=== PATIENT | male | born 1960 | race Asian ===

== ENCOUNTER 2019-03-02 08:24 | Day surgery (SDC) | payer BC, SELFPAY ==
[2019-03-02] VITALS (9 sets, daily range): BP systolic 90–126; BP diastolic 66–81; PULSE 77–97; RESP 9–16; TEMP 36.2–36.7; O2SAT 92–100; BMI 21.7
--- NOTE | 2019-03-02 | PATH_ITS ---
[facility] Accession Number: [id number] . 01 Material submitted: . PART A: duodenum bulb - DUODENAL BULB POLYP PART B: gastrointestinal site - STOMACH POLYP PART C: gastrointestinal site - STOMACH BIOPSY . 01 Clinical history: . A-B. R/O ADENOMA C. R/O H. PYLORI . 02 Diagnosis: A. 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 . B. Biopsy, Stomach Polyp: Changes consistent with benign fundic gland polyp involving two biopsy fragments. . C. Biopsy, Stomach: Mucosal hyperemia without associated significant inflammation involving antral and fundic mucosa. Negative for Helicobacter on H/E stain. Negative for intestinal metaplasia. Negative for dysplasia and malignancy. [facility]/03/03/2019 . 02 Electronically signed: . Oscar Bennett MD, Pathologist NPI- [id number] . 01 Gross description: . Part A: DUODENAL BULB POLYP: Received in formalin is 1 fragment(s) of ortiz, soft tissue measuring 0.1 x 0.1 x 0.1 cm which is entirely submitted and submitted entirely in 1 cassette(s) Part B: STOMACH POLYP: Received in formalin are 3 fragment(s) of ortiz, soft tissue measuring 0.1 x 0.1 x 0.1 cm to 0.4 x 0.2 x 0.2 cm which is entirely submitted and submitted entirely in 1 cassette(s) Part C: STOMACH BIOPSY: Received in formalin is 1 fragment(s) of ortiz, soft tissue measuring 0.3 x 0.2 x 0.2 cm which is entirely submitted and submitted entirely in 1 cassette(s) /[facility] /[facility] . 02 Pathologist provided ICD-10: K31.89 . 02 CPT . 781246, 599456, 240457 Performed at: 01 [facility] [address] [place] [address], [place], [place] [id number] MD Jayro Velasquez MD Phone: [phone] Performed at: 02 [facility] [place] [address] [place], [place] [id number] MD Sarah Serrano MD Phone: [phone]
[2019-03-02] MEDS: SODIUM CHLORIDE 0.9% 1,000 ML 42 ML IV (09:00)
--- NOTE | 2019-03-02 10:10 | PM.HP.1 ---
History of Present Illness History of Present Illness Date Patient Seen: 03/02/19 Time Patient Seen: 10:11 Chief complaint: [id number] Narrative: GE reflux and colon cancer screening Patient History Medical History (Updated 03/02/19 @ 09:02 by Elin Kraft RN) Blurred vision (Acute) Constipation (Acute) Dry skin (Acute) GERD (gastroesophageal reflux disease) (Acute) Kidney cyst, acquired (Acute) Unintentional weight loss (Acute) Surgical History (Updated 03/02/19 @ 08:46 by Elin Kraft RN) History of colonoscopy (Acute) History of esophagogastroduodenoscopy (EGD) (Acute) Social History household members: spouse Family & Social History Social History: household members spouse Meds Home Medications and Allergies Home Medications Medication Instructions Recorded Confirmed Type ezetimibe [Zetia] 10 mg PO DAILY 03/02/19 03/02/19 History lisinopril 10 mg PO DAILY 03/02/19 03/02/19 History omega-3 acid ethyl esters [Lovaza] 1 cap PO BID 03/02/19 03/02/19 History sildenafil [Viagra] 100 mg PO DAILY PRN 03/02/19 03/02/19 History Allergies Allergy/AdvReac Type Severity Reaction Status Date / Time No Known Drug Allergies Allergy Verified 03/02/19 08:46 Exam Vital Signs (past 8 hours): - 03/02/19 08:53 Temperature 97.6 F Pulse Rate 79 Respiratory Rate 14 Blood Pressure 126/71 Pulse Oximetry 100 Oxygen Delivery Method Room Air Narrative Exam Narrative: Oropharynx free of lesions Chest clear to auscultation percussion Cardiac exam reveals no S3 or murmur Assessment & Plan Assessment & Plan narrative: GE reflux need for EGD for his assessment of possible esophagitis or Sparks's esophagus Colonoscopy for colorectal cancer screening. Risks benefits and alternatives have been explained.
--- NOTE | 2019-03-02 10:12 | PM.OP.ENDO ---
Operative Date/Time/Diagnoses Date of procedure: 03/02/19 Time of procedure: 10:12 Pre-op diagnosis: See indication and findings Procedure & Clinicians Study performed: EGD and colonoscopy Same procedure as scheduled: Yes Indications: GE reflux and need for colorectal cancer screening Surgeon: María Chan Procedure Notes Procedure in detail: After informed consent was obtained the patient was placed in the left lateral decubitus position. The video upper scope was placed into the oropharynx with the patient's health swallowed into the esophagus. The esophagus, stomach, and duodenum were carefully examined. On withdrawal, retroflexed view the GE junction was performed. The scope was removed. The patient tolerated procedure well. The patient was then turned in the colonoscope substituted placed in the rectum and slowly advanced the splenic flexure. It was very tortuous here and uncomfortable for the patient. I was not able to easily pass.. On slow withdrawal mucosa was carefully examined. Preparation was excellent. The scope was removed. The patient tolerated the procedure well. Blood loss none Complications none Sedation Total sedation time 27 minutes Versed 9 mg fentanyl 200 micro g IV titration Findings EGD 1. Completely normal esophagus 2. Streaky gastric erythema in the antrum biopsies taken to rule out Helicobacter 3. Two 4 mm polyps in the gastric body biopsy taken to rule out adenomas 4. Single 3 mm polyp in the duodenal bulb biopsies taken to rule out adenoma. Most likely John gland hyperplasia Colonoscopy 1. Normal colonoscopy to splenic flexure only. Very tortuous and unable to pass. We will be in touch regarding biopsies from his stomach. He should stay on current medications. As for colorectal cancer screening he has had a ?sigmoidoscopy? period would not suggest for other colon imaging currently but might consider a fit test in the future
[2019-03-02] MEDS: MIDAZOLAM 5 MG/5 ML VIAL IV (10:15)
[2019-03-02] MEDS: fentaNYL 250 MCG/5 ML INJ IV (10:15)
== END 2019-03-02 11:40 | disposition home or self-care (01) ==
PROVIDERS: PCP Physician Assistant; Visit Provider Internal Medicine Gastroenterology
PROC: 0DJ08ZZ Inspection of Upper Intestinal Tract, Via Natural or Artificial Opening Endoscopic (ICD-10-PCS; CPT 43235; principal; 2019-03-02 10:00)
PROC: 0DJD8ZZ Inspection of Lower Intestinal Tract, Via Natural or Artificial Opening Endoscopic (ICD-10-PCS; CPT 45378; 2019-03-02 10:00)
DX: Z12.11 Encounter for screening for malignant neoplasm of colon (principal); K31.7 Polyp of stomach and duodenum; K31.89 Other diseases of stomach and duodenum; K21.9 Gastro-esophageal reflux disease without esophagitis
CPT/HCPCS: 43239; G0104; J2250; J3010

== ENCOUNTER → 2020-04-23 09:55 | Outpatient (CLI) | payer BC, SELFPAY ==
[2020-04-23 10:39] LABS: Hemoglobin A1C% w Est Avg Glu 5.7 % (4.0-6.0)
[2020-04-23 10:42] LABS: Erythrocyte Sedimentation Rate 1 MM/HR (0-15)
[2020-04-23 10:46] LABS: Alanine Aminotransferase 39 IU/L (<50); Albumin 4.1 g/dL (3.5-5.0); Albumin Globulin Ratio 1.2 (1.0-2.8); Alkaline Phosphatase 54 U/L (38-126); Aspartate Aminotransferase 39 IU/L (17-59); BUN Creatinine Ratio 18.4 (6-22); Bilirubin Total 0.8 mg/dL (0.2-1.3); Blood Urea Nitrogen 16 mg/dL (9-20); Calcium 9.1 mg/dL (8.4-10.2); Carbon Dioxide 35 mmol/L (22-32); Chloride 103 mmol/L (98-107); Cholesterol 259 mg/dL (140-199); Creatine Kinase 580 U/L (55-170); Estimated Glomerular Filt Rate > 60.0 mL/min (>60); Globulin 3.3 g/dL (1.7-4.1); Glucose 107 mg/dL (70-100); HDL Cholesterol 53 mg/dL (40-60); HEMOLYSIS < 15 (0-50); LDL Cholesterol Calculated 177 mg/dL (<100); Potassium 4.1 mmol/L (3.4-5.1); Sodium 140 mmol/L (137-145); Total Protein 7.4 g/dL (6.3-8.2); Triglycerides 143 mg/dL (35-150)
[2020-04-23 10:47] LABS: C-Reactive Protein Quant < 0.5 mg/dL (<1.0)
[2020-04-23 11:12] LABS: Prostate Specific Antigen Scrn 0.847 ng/mL (0.1-4.0)
[2020-04-23 11:39] LABS: TSH w/ Reflex to FT4 2.35 uIU/mL (0.47-4.68)
== END ==
PROVIDERS: PCP Internal Medicine; Referring Provider Internal Medicine; Visit Provider Internal Medicine
DX: Z12.5 Encounter for screening for malignant neoplasm of prostate (principal); E78.2 Mixed hyperlipidemia; I10 Essential (primary) hypertension; R74.8 Abnormal levels of other serum enzymes; R73.9 Hyperglycemia, unspecified
CPT/HCPCS: 36415; 80053; 80061; 82550; 83036; 84443; 85651; 86140; G0103

== ENCOUNTER → 2020-05-29 10:47 | Outpatient (CLI) | payer BC, SELFPAY ==
--- NOTE | 2020-05-29 | DI.CT.S_ITS ---
PROCEDURE: CT SINUS SCREEN WO CON INDICATIONS: Other specified disorders of nose and nasal sinuse TECHNIQUE: Noncontrast 3.0 mm axial images acquired from the frontal sinuses to the mid-sella, with coronal and sagittal reformats. For radiation dose reduction, the following was used: automated exposure control, adjustment of mA and/or kV according to patient size. COMPARISON: None. FINDINGS: Image quality: Excellent. Maxillary Sinuses: No bony remodeling or destruction. Minimal mucosal thickening is seen within the maxillary sinuses. Ethmoid Air Cells: No bony remodeling or destruction. [id number] mucosal thickening is seen within the ethmoid air cells. Sphenoid Sinuses: No bony remodeling or destruction. Sinuses are clear. Frontal Sinuses: No bony remodeling or destruction. Mild mucosal thickening is seen within the inferomedial frontal sinuses. Ostiomeatal Complexes: Ostiomeatal complexes are patent. No Jose Francisco cells. Miscellaneous: Visualized intra-orbital contents are normal. There are trivial bilateral caridad bullosa. There is minimal leftward nasal septal deviation. IMPRESSION: Multiple foci of paranasal sinus disease can be seen. Dictated by: Moises Ladd M.D. on 05/29/2020 at 11:48 Approved by: Moises Ladd M.D. on 05/29/2020 at 11:49
== END ==
PROVIDERS: PCP Internal Medicine; Referring Provider Otolaryngology; Visit Provider Otolaryngology
DX: J32.4 Chronic pansinusitis (principal); J34.89 Other specified disorders of nose and nasal sinuses
CPT/HCPCS: 70486

== ENCOUNTER → 2023-06-08 14:06 | Outpatient (CLI) | payer BC, SELFPAY ==
[2023-06-08 14:53] LABS: Influenza A - CEPHEID Flu A POSITIVE (NEGATIVE); Influenza B - CEPHEID Flu B NEGATIVE (NEGATIVE); Respiratory Syncytial Virus Negative (Negative)
[2023-06-08 15:08] LABS: COVID-19 CEPHEID 4-PLEX PCR Negative (Negative)
== END ==
PROVIDERS: Visit Provider Physician Assistant
DX: R05.1 Acute cough (principal)
CPT/HCPCS: 0241U

== ENCOUNTER 2023-06-13 09:08 | Emergency (ER) | payer BC, SELFPAY ==
[2023-06-13] VITALS (8 sets, daily range): BP systolic 128–152; BP diastolic 78–99; PULSE 74–89; RESP 15–20; TEMP 36.4; O2SAT 98–99; BMI 22.6
--- NOTE | 2023-06-13 10:03 | DI.RAD.S_ITS ---
PROCEDURE: XR CHEST 1V INDICATIONS: chest pain TECHNIQUE: One view of the chest was acquired. COMPARISON: None. FINDINGS: Surgical changes and devices: None. Lungs and pleura: Lungs are clear. No pleural effusions or pneumothorax. Mediastinum: Mediastinal contours appear normal. Heart size is normal. Bones and chest wall: No suspicious bony lesions. Overlying soft tissues appear unremarkable. IMPRESSION: No acute cardiopulmonary abnormality is seen. Dictated by: Arvin Murdock M.D. on 06/13/2023 at 9:28 Approved by: Arvin Murdock M.D. on 06/13/2023 at 9:32
[2023-06-13] MEDS: PANTOPRAZOLE 40 MG VIAL IV (10:12)
--- NOTE | 2023-06-13 10:24 | ED.ABDPAIN ---
HPI - Abdominal Pain General Chief Complaint: Abdominal Pain Stated Complaint: abd pain/not sleeping Time Seen by Provider: 06/13/23 09:47 Source: patient Mode of arrival: Ambulatory History of Present Illness HPI narrative: Patient 62-year-old male with history of anxiety severe acid reflux hypertension hyperlipidemia presenting today with 5 days of not sleeping burning in his chest. He brings reports where he had an EGD last month in him there was an ulcer. He is on omeprazole 40 mg he has been taking in the morning. However over the last 5 days he feels like has pain from his epigastrium into his chest burning not going away. He has anxiety at baseline but now really can not sleep for the last 5 days. He is quite anxious. 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 He has no real shortness of breath nausea vomiting. He is very concerned about not sleeping and his ongoing acid. reports that 1 week ago he had cold with fever chills and upper respiratory like symptoms. That has gotten better. Related Data Home Medications Medication Instructions Recorded Confirmed sildenafil 100 mg tablet (Viagra) 100 mg PO DAILY PRN Erectile 03/02/19 05/04/20 Dysfunction latanoprost 0.005 % eye drops 1 drop EYE-RIGHT DAILY 01/24/20 05/04/20 omega-3 acid ethyl esters 1 gram 2 cap PO TID 01/24/20 05/04/20 capsule (Lovaza) lisinopril 10 mg tablet 10 mg PO DAILY 05/04/20 05/04/20 ezetimibe 10 mg tablet 10 mg PO DAILY 06/08/23 06/08/23 metformin 500 mg tablet,extended 500 mg PO BID 06/08/23 06/08/23 release 24 hr rosuvastatin 10 mg tablet 10 mg PO ONCE PM 06/08/23 06/08/23 tamsulosin 0.4 mg capsule mg PO DAILY 06/08/23 06/08/23 Previous Rx's Medication Instructions Recorded lorazepam 0.5 mg tablet 0.5 mg PO BEDTIME PRN sleep #3 tabs 06/13/23 Allergies Allergy/AdvReac Type Severity Reaction Status Date / Time No Known Drug Allergies Allergy Verified 06/13/23 09:20 Patient History Medical History (Updated 06/13/23 @ 11:19 by Gabbie Mendez DO) Hematuria Allergies Cataracts, bilateral (~2004) Elevated CK Erectile dysfunction BPH w urinary obs/LUTS Anxiety Depression Glaucoma (~2004) Hypogonadism male Essential hypertension (~2009) Kidney cyst, acquired Blurred vision Dry skin Constipation GERD (gastroesophageal reflux disease) Surgical History (Updated 05/04/20 @ 11:43 by Denilson Maria MD) S/P cataract extraction History of esophagogastroduodenoscopy (EGD) History of colonoscopy Family History (Updated 01/24/20 @ 15:06 by Denilson Maria MD) Mother Diabetes mellitus Hyperlipidemia Hypertension Father Hypertension Hyperlipidemia Heart disease Social History household members: spouse Smoking Status: Former smoker Smoking Status: Former smoker alcohol intake frequency: holidays/special occasions only Substance Use Type: does not use Exam Initial Vital Signs Initial Vital Signs: Vital Signs Temperature 97.6 F 06/13/23 09:10 Pulse Rate 86 06/13/23 09:10 Respiratory Rate 15 06/13/23 09:10 Blood Pressure 152/99 H 06/13/23 09:10 Pulse Oximetry 99 06/13/23 09:10 Oxygen Delivery Method Room Air 06/13/23 09:10 GENERAL: Alert pleasant soft-spoken 62-year-old male and in no acute distress. HEENT: Head atraumatic,EOMI, pupils reactive, face symmetric, moist mucous membranes CARDIOVASCULAR: Regular rate and rhythm without murmurs, rubs or gallops. RESPIRATORY: Breath sounds equal bilaterally, no wheezes rales or rhonchi. ABDOMEN: Soft, mild epigastric pain no guarding or rebound Normoactive bowel sounds all 4 quadrants. No distention EXTREMITIES: Normal range of motion, no clubbing or edema. Neurovascularly intact NEUROLOGICAL: Alert and oriented x4.Normal gait and speech. Cranial nerves II through XII grossly intact. SKIN: Warm, dry, no laceration, no petechiae, no rashes or lesions. Course Orders Ordered: ED Orders 06/13/23 09:32 EKG-12 Lead Stat 06/13/23 10:03 XR chest 1V Stat 06/13/23 10:09 Complete Blood Count AUTO DIFF Stat Comprehensive Metabolic Panel Stat Lipase Stat Troponin & CK Cardiac Panel Stat Discontinued Medications Lorazepam (Lorazepam 0.5 Mg Tablet) 0.5 mg PO NOW ONE Stop: 06/13/23 11:30 Last Admin: 06/13/23 11:43 Dose: 0.5 mg Documented By: ADAM Pantoprazole Sodium (Pantoprazole 40 Mg Vial) 40 mg IV NOW ONE Stop: 06/13/23 10:04 Last Admin: 06/13/23 10:12 Dose: 40 mg Documented By: ADAM Vital Signs Vital signs: Vital Signs - 8 hr 06/13/23 10:17 06/13/23 10:18 06/13/23 10:18 Pulse Rate 78 79 Respiratory Rate 20 20 Blood Pressure 128/78 Pulse Oximetry 98 98 06/13/23 10:30 06/13/23 10:30 06/13/23 11:00 Pulse Rate 75 Respiratory Rate 17 Blood Pressure 132/81 136/87 Pulse Oximetry 98 06/13/23 11:00 06/13/23 11:30 06/13/23 11:30 Pulse Rate 74 80 Respiratory Rate 17 17 Blood Pressure 151/94 H Pulse Oximetry 98 99 MDM - Abdominal Pain Lab Data 06/13/23 10:09 06/13/23 10:09 Labs: Lab Results 06/13/23 Range/Units 10:09 WBC 2.7 L (4.5-11.0) X10^3/uL RBC 4.75 (4.5-5.9) X10^6/uL Hgb 14.5 (13.5-17.5) g/dL Hct 42.8 (41-53) % MCV 90.2 (80-100) fL MCH 30.7 (26-34) PG MCHC 34.0 (30-36) % RDW 13.4 (11.6-14.8) % Plt Count 182 (150-400) X10^3/uL Neut % (Auto) 37.5 L (50-75) % Lymph % (Auto) 43.5 H (25-40) % Bulloch % (Auto) 18.0 H (3-14) % Eos % (Auto) 0.6 L (2-4) % Baso % (Auto) 0.4 (0-2) % Neut # (Auto) 1000 L (9048-1871) /uL Lymph # (Auto) 1200 (8464-3808) /uL Bulloch # (Auto) 500 (0-900) /uL Eos # (Auto) 0 (0-450) /uL Baso # (Auto) 0 (0-100) /uL Sodium 127 L (137-145) mmol/L Potassium 3.5 (3.4-5.1) mmol/L Chloride 91 L (98-107) mmol/L Carbon Dioxide 26 (22-32) mmol/L BUN 9 (9-20) mg/dL Creatinine 0.60 L (0.66-1.25) mg/dL Estimated GFR > 60 (>60) mL/min BUN/Creatinine Ratio 15.0 (6-22) Glucose 112 H (80-110) mg/dL Calcium 8.6 (8.4-10.2) mg/dL Total Bilirubin 0.8 (0.2-1.3) mg/dL AST 92 H (17-59) IU/L ALT 115 H (<50) IU/L Alkaline Phosphatase 52 (38-126) U/L Total Creatine Kinase 839 H (55-170) U/L Troponin I < 0.012 (0.01-0.034) ng/mL Total Protein 7.2 (6.3-8.2) g/dL Albumin 3.9 (3.5-5.0) g/dL Globulin 3.3 (1.7-4.1) g/dL Albumin/Globulin Ratio 1.2 (1.0-2.8) Lipase 126 (23-300) U/L Imaging Data Chest x-ray: Radiologist's Impression: PROCEDURE: XR CHEST 1V INDICATIONS: chest pain TECHNIQUE: One view of the chest was acquired. COMPARISON: None. FINDINGS: Surgical changes and devices: None. Lungs and pleura: Lungs are clear. No pleural effusions or pneumothorax. Mediastinum: Mediastinal contours appear normal. Heart size is normal. Bones and chest wall: No suspicious bony lesions. Overlying soft tissues appear unremarkable. IMPRESSION: No acute cardiopulmonary abnormality is seen. Dictated by: Arvin Murdock M.D. on 06/13/2023 at 9:28 ECG Data Interpretation: Normal sinus rhythm rate 77 SD interval 176 QRS [address] changes no T-wave inversions MDM Narrative Medical decision making narrative: Patient is 62-year-old male who has acid reflux presents today with worsening acid reflux chest pain inability to sleep. Blood work has been reviewed overall reassuring no evidence end-organ damage EKGs within limits. At this time there is definitely an anxiety component. Patient would benefit from some sleep after not sleeping for 5 days. Will give him 2 doses of Ativan. He was taking Ambien for sleep which he says was helping but really helping with the anxiety. Recommend continuing the omeprazole. He was given a dose of Protonix here in the ED. He has a history GERD and acid reflux what he describing as burning sensation in his chest in the back of the throat which is consistent with acid reflux. No evidence of acute coronary syndrome EKG does not show any changes. Suspect anxiety insomnia worsening acid. Discussed that we will give him couple doses of Ativan and he needs to follow-up with PCP. Discharge Plan Departure Patient Disposition: Home Clinical Impression: Acid reflux, Acute insomnia Instructions: Insomnia, GERD Diet Activity Restrictions/Additional Instructions: *You have been diagnosed with acid reflux and insomnia *What to do: At this time your blood work is overall reassuring. Your heart looks good. Will give you a couple tablets of lorazepam to help you sleep. Take it right before you want to sleep this will help with some anxiety. It can be addictive not recommended for long-term use. *Continue to take medications as directed Omeprazole 40 mg before bed Lorazepam 0.5 mg before bed only as needed *Follow up with your primary care provider in 2-3 days or call [phone] *Return to ER if you should have increasing chest pain weakness or any new, worsening or concerning symptoms Prescriptions: New lorazepam 0.5 mg tablet 0.5 mg PO BEDTIME PRN (Reason: sleep) Qty: 3 0RF No Action tamsulosin 0.4 mg capsule PO DAILY metformin 500 mg tablet extended release 24 hr 500 mg PO BID ezetimibe 10 mg tablet 10 mg PO DAILY rosuvastatin 10 mg tablet 10 mg PO ONCE PM latanoprost 0.005 % drops 1 drop EYE-RIGHT DAILY lisinopril 10 mg tablet 10 mg PO DAILY sildenafil [Viagra] 100 mg Tablet 100 mg PO DAILY PRN (Reason: Erectile Dysfunction) omega-3 acid ethyl esters [Lovaza] 1 gram capsule 2 cap PO TID Referrals: Miscellaneous,Doctor, MD [Primary Care Provider] - Stand Alone Forms: Patient Portal/API, Work Release Note
[2023-06-13 10:27] LABS: Add Manual Diff / Slide Review NO; Basophils Absolute Auto 0 /uL (0-100); Basophils Percent Auto 0.4 % (0-2); Eosinophils Absolute Auto 0 /uL (0-450); Eosinophils Percent Auto 0.6 % (2-4); Hematocrit 42.8 % (41-53); Hemoglobin 14.5 g/dL (13.5-17.5); Lymphocytes Absolute Auto 1200 /uL (1100-4500); Lymphocytes Percent Auto 43.5 % (25-40); Mean Corpuscular Hemoglobin 30.7 PG (26-34); Mean Corpuscular Volume 90.2 fL (80-100); Monocytes Absolute Auto 500 /uL (0-900); Neutrophils Absolute Auto 1000 /uL (1500-7000); Neutrophils Percent Auto 37.5 % (50-75); Platelet Count 182 X10^3/uL (150-400); Red Blood Cell Count 4.75 X10^6/uL (4.5-5.9); Red Cell Distribution Width 13.4 % (11.6-14.8); White Blood Cell Count 2.7 X10^3/uL (4.5-11.0)
[2023-06-13 10:33] LABS: Alanine Aminotransferase 115 IU/L (<50); Albumin 3.9 g/dL (3.5-5.0); Albumin Globulin Ratio 1.2 (1.0-2.8); Alkaline Phosphatase 52 U/L (38-126); Aspartate Aminotransferase 92 IU/L (17-59); Bilirubin Total 0.8 mg/dL (0.2-1.3); Blood Urea Nitrogen 9 mg/dL (9-20); Calcium 8.6 mg/dL (8.4-10.2); Carbon Dioxide 26 mmol/L (22-32); Chloride 91 mmol/L (98-107); Creatine Kinase 839 U/L (55-170); Estimated Glomerular Filt Rate > 60 mL/min (>60); Globulin 3.3 g/dL (1.7-4.1); Glucose 112 mg/dL (80-110); HEMOLYSIS < 15 (0-50); Lipase 126 U/L (23-300); Potassium 3.5 mmol/L (3.4-5.1); Sodium 127 mmol/L (137-145); Total Protein 7.2 g/dL (6.3-8.2)
[2023-06-13 10:44] LABS: Troponin I < 0.012 ng/mL (0.01-0.034)
[2023-06-13] MEDS: LORazepam 0.5 MG TABLET PO (11:43)
== END 2023-06-13 11:58 | disposition home or self-care (01) ==
PROVIDERS: Emergency Provider Emergency Medicine
DX: K21.9 Gastro-esophageal reflux disease without esophagitis (principal); G47.00 Insomnia, unspecified
CPT/HCPCS: 36415; 71045; 80053; 82550; 83690; 84484; 85025; 93005; 96374; 99284; C9113

== ENCOUNTER 2023-06-15 09:52 | Inpatient (IN) | payer BC, SELFPAY ==
[2023-06-15] VITALS (28 sets, daily range): BP systolic 112–192; BP diastolic 68–112; PULSE 70–86; RESP 12–34; TEMP 36.6–37.3; O2SAT 91–99; BMI 22.6; BMI 22.2
--- NOTE | 2023-06-15 10:15 | DI.RAD.S_ITS ---
PROCEDURE: XR CHEST 1V INDICATIONS: chest pain TECHNIQUE: One view of the chest was acquired. COMPARISON: [facility], CR, XR CHEST 1V, 06/13/2023, 10:17. FINDINGS: Surgical changes and devices: None. Lungs and pleura: Lungs are clear. No pleural effusions or pneumothorax. Mediastinum: Mediastinal contours appear normal. Heart size is normal. Bones and chest wall: No suspicious bony lesions. Overlying soft tissues appear unremarkable. IMPRESSION: No acute process. Dictated by: Yao Valdivia M.D. on 06/15/2023 at 10:55 Approved by: Yao Valdivia M.D. on 06/15/2023 at 10:56
[2023-06-15] MEDS: MAG HYDROX/ALUMINUM/SIMETH SUS 20 ML, LIDOCAINE VISCOUS 2% 15 ML PO (10:38)
[2023-06-15] MEDS: lisinopriL 10 MG TABLET PO (10:38)
[2023-06-15 11:05] LABS: Add Manual Diff / Slide Review NO; Basophils Absolute Auto 0 /uL (0-100); Basophils Percent Auto 0.2 % (0-2); Eosinophils Absolute Auto 0 /uL (0-450); Eosinophils Percent Auto 0.3 % (2-4); Hemoglobin 14.3 g/dL (13.5-17.5); Lymphocytes Absolute Auto 1000 /uL (1100-4500); Mean Corpuscular HGB Conc 34.9 % (30-36); Mean Corpuscular Hemoglobin 31.4 PG (26-34); Monocytes Absolute Auto 800 /uL (0-900); Neutrophils Absolute Auto 2700 /uL (1500-7000); Neutrophils Percent Auto 59.5 % (50-75); Platelet Count 257 X10^3/uL (150-400); Red Blood Cell Count 4.55 X10^6/uL (4.5-5.9); Red Cell Distribution Width 12.7 % (11.6-14.8); White Blood Cell Count 4.5 X10^3/uL (4.5-11.0)
[2023-06-15 11:11] LABS: Alanine Aminotransferase 83 IU/L (<50); Albumin 3.9 g/dL (3.5-5.0); Albumin Globulin Ratio 1.2 (1.0-2.8); Alkaline Phosphatase 54 U/L (38-126); Aspartate Aminotransferase 56 IU/L (17-59); BUN Creatinine Ratio 14.5 (6-22); Bilirubin Total 1.1 mg/dL (0.2-1.3); Blood Urea Nitrogen 8 mg/dL (9-20); Calcium 8.7 mg/dL (8.4-10.2); Carbon Dioxide 24 mmol/L (22-32); Chloride 82 mmol/L (98-107); Creatine Kinase 1040 U/L (55-170); Estimated Glomerular Filt Rate > 60 mL/min (>60); Globulin 3.2 g/dL (1.7-4.1); Glucose 153 mg/dL (80-110); HEMOLYSIS 16 (0-50); Lipase 164 U/L (23-300); Magnesium 1.7 mg/dL (1.6-2.3); PTT Partial Thromboplastin Tim 29 SECONDS (25.1-36.5); Potassium 3.4 mmol/L (3.4-5.1); Total Protein 7.1 g/dL (6.3-8.2)
[2023-06-15 11:22] LABS: Troponin I < 0.012 ng/mL (0.01-0.034)
[2023-06-15 11:26] LABS: Sodium 114 mmol/L (137-145)
--- NOTE | 2023-06-15 11:42 | ED_ITS ---
HPI - Anxiety General Chief Complaint: Anxiety Stated Complaint: heartburn not getting better aniexty paranoid Time Seen by Provider: 06/15/23 11:21 Source: patient Mode of arrival: Ambulatory Limitations: no limitations History of Present Illness HPI narrative: 62-year-old male with history of hypertension, dyslipidemia, diabetes who presents with complaint of increasing anxiety and persistent heartburn. Patient states he can not sleep he was given a prescription for lorazepam which has not been helpful he is taken Ambien. He takes sertraline. He has been taking omeprazole without any improvement. He has been taking his blood pressure, cholesterol diabetes medications. He states little bit headache, he has not had any episodes of syncope. He describes heartburn the epigastric radiating upwards with a bad taste in his mouth. No shortness of breath. No nausea, no vomiting, no diarrhea or constipation. He denies any dysuria urgency frequency or polyuria. States he is not drinking a lot of water. He was seen here several days ago and was given medications for anxiety. He did test positive for influenza on 06/08/2023. Patient states he is not on any diuretics. No prior surgeries. No known drug allergies. No tobacco, alcohol or illicit. Both patient and state he has been ambulating without issue. states he has been very anxious. Related Data Home Medications Medication Instructions Recorded Confirmed latanoprost 0.005 % eye drops 1 drop EYE-BOTH DAILY 01/24/20 06/15/23 lisinopril 10 mg tablet 10 mg PO DAILY 05/04/20 06/15/23 ezetimibe 10 mg tablet 10 mg PO DAILY 06/08/23 06/15/23 metformin 500 mg tablet,extended 500 mg PO BID 06/08/23 06/15/23 release 24 hr rosuvastatin 10 mg tablet 10 mg PO ONCE PM 06/08/23 06/15/23 tamsulosin 0.4 mg capsule 0.4 mg PO DAILY 06/08/23 06/15/23 finasteride 5 mg tablet 5 mg PO DAILY 06/15/23 06/15/23 lorazepam 0.5 mg tablet 0.25 mg PO BEDTIME PRN sleep 06/15/23 06/15/23 omeprazole 40 mg capsule,delayed 40 mg PO BID 06/15/23 06/15/23 release sertraline 25 mg tablet 25 mg PO DAILY 06/15/23 06/15/23 timolol 0.5 % eye drops (Betimol) 1 drp ophthalmic (eye) DAILY 06/15/23 06/15/23 zolpidem 10 mg tablet (Ambien) 10 mg PO BEDTIME PRN Insomnia 06/15/23 06/15/23 Allergies Allergy/AdvReac Type Severity Reaction Status Date / Time No Known Drug Allergies Allergy Verified 06/15/23 10:11 Review of Systems Review of Systems ROS Unobtainable: All systems reviewed & are unremarkable except as noted in HPI and below Patient History Medical History Hematuria Allergies Cataracts, bilateral (~2004) Elevated CK Erectile dysfunction BPH w urinary obs/LUTS Anxiety Depression Glaucoma (~2004) Hypogonadism male Essential hypertension (~2009) Kidney cyst, acquired Blurred vision Dry skin Constipation GERD (gastroesophageal reflux disease) Surgical History S/P cataract extraction History of esophagogastroduodenoscopy (EGD) History of colonoscopy Family History Mother Diabetes mellitus Hyperlipidemia Hypertension Father Hypertension Hyperlipidemia Heart disease Social History household members: spouse Smoking Status: Former smoker Smoking Status: Former smoker alcohol intake frequency: holidays/special occasions only Substance Use Type: does not use Exam Narrative Exam Narrative: GEN: well nourished, well appearing male, alert and oriented, patient appears to be in mild distress. HEENT: Atraumatic, pupils are equal round reactive to light, extraocular movements are intact, nares are clear, TMs are clear with no fluid, there is no conjunctival pallor. Throat is clear without any exudates, erythema, tonsillar enlargement or uvular deviation HEART: Regular rate and rhythm without murmur, clicks, rubs. No carotid bruits, pulses are equal in upper and lower extremities LUNGS:Lungs clear to auscultation, no wheezes, rales, crackles, chest moves symmetrically ABD:bowel sounds normal, soft, non-tender, no guarding, rebound, rigidity, no masses noted, no hepatosplenomegaly :No CVA tenderness, [male/female exam] MSCL: Non-tender, no muscle atrophy, muscles strength 5/5 upper and lower extremities, full range of motion NEURO:CN 2-12 intact, sensation normal, patient answers questions appropriately but does seem to return to the same questions over and over and does seem to have some confusion. SKIN: Rash or skin changes noted. Initial Vital Signs Initial Vital Signs: Vital Signs Temperature 97.9 F 06/15/23 10:04 Pulse Rate 84 06/15/23 10:04 Respiratory Rate 14 06/15/23 10:04 Blood Pressure 192/112 H 06/15/23 10:04 Pulse Oximetry 99 06/15/23 10:04 Oxygen Delivery Method Room Air 06/15/23 10:04 Course Orders Ordered: Acetaminophen (Acetaminophen 325 Mg Tablet) 650 mg PO Q6H PRN PRN Reason: Fever/Mild Pain (1-3) Atorvastatin Calcium (Atorvastatin 20 Mg Tablet) 20 mg PO BEDTIME [facility] Last Admin: 06/15/23 21:14 Dose: 20 mg Documented By: BRE Al Hydrox/Mg Hydrox/Simethicone 20 ml/ Lidocaine HCl 15 ml 0 ml PO Q8H PRN PRN Reason: GI upset Last Admin: 06/16/23 05:16 Dose: 35 ml Documented By: BRE Ezetimibe (Ezetimibe 10 Mg Tablet) 10 mg PO DAILY [facility] Enoxaparin Sodium (Enoxaparin 40 Mg/0.4 Ml Syringe) 40 mg SUBCUT DAILY [facility] Last Admin: 06/15/23 16:57 Dose: 40 mg Documented By: MEDARDO Finasteride (Finasteride 5 Mg Tablet) 5 mg PO DAILY [facility] Dextrose (D10w) 100 mls @ 1,200 mls/hr IV PRN PRN PRN Reason: Hypoglycemia Dextrose (Dextrose 5% Water) 1,000 mls @ 100 mls/hr IV CONT [facility] Last Infusion: 06/16/23 03:09 Dose: 100 mls/hr Documented By: Infusion: 06/16/23 00:46 Dose: 150 mls/hr Documented By: Admin: 06/15/23 21:30 Dose: 100 mls/hr Documented By: BRE Insulin Human Lispro (Insulin Lispro 100 Unit/Ml 3ml Vial) 0 unit SUBCUT ACHS [facility]; Protocol Last Admin: 06/15/23 21:14 Dose: Not Given Documented By: BRE Latanoprost (Latanoprost 0.005% Ophth 2.5 Ml) 1 drops EYE-BOTH DAILY [facility] Lisinopril (Lisinopril 10 Mg Tablet) 10 mg PO DAILY [facility] Lorazepam (Lorazepam 0.5 Mg Tablet) 0.5 mg PO Q6H PRN PRN Reason: Anxiety Melatonin (Melatonin 3 Mg Tablet) 6 mg PO BEDTIME PRN PRN Reason: Insomnia Home Medication (Storage) 0 each PO PRN PRN PRN Reason: Home Medication Storage Ondansetron HCl (Ondansetron 4 Mg/2 Ml Inj) 4 mg IV Q4HR PRN PRN Reason: Nausea And Vomiting Pantoprazole Sodium (Pantoprazole Dr 40 Mg Tablet) 40 mg PO BID [facility] Last Admin: 06/15/23 21:13 Dose: 40 mg Documented By: BRE Polyethylene Glycol (Polyethylene Glycol 3350 17 Gm Powd.Pack) 17 gm PO DAILY PRN PRN Reason: Constipation Sennosides (Sennosides 8.6 Mg Tablet) 8.6 mg PO BID PRN PRN Reason: Constipation Tamsulosin HCl (Tamsulosin 0.4 Mg Capsule) 0.4 mg PO DAILY [facility] Timolol Maleate (Timolol 0.5% Ophth) 1 drops EYE-BOTH DAILY [facility] Zolpidem Tartrate (Zolpidem 5 Mg Tablet) 10 mg PO BEDTIME PRN PRN Reason: Insomnia Last Admin: 06/15/23 21:13 Dose: 10 mg Documented By: BRE Discontinued Medications Al Hydrox/Mg Hydrox/Simethicone 20 ml/ Lidocaine HCl 15 ml 0 ml PO NOW ONE Stop: 06/15/23 10:17 Last Admin: 06/15/23 10:38 Dose: 35 ml Documented By: KIM Furosemide (Furosemide 40 Mg/4 Ml Vial) 40 mg IV NOW ONE Stop: 06/15/23 15:49 Magnesium Sulfate (Magnesium Sulfate) 2 gm in 50 mls @ 25 mls/hr IV NOW ONE Stop: 06/15/23 17:56 Last Infusion: 06/15/23 19:01 Dose: Infused Documented By: MEDARDO Co-signed By: EMRE Admin: 06/15/23 16:56 Dose: 25 mls/hr Documented By: MEDARDO Co-signed By: TLS Sodium Chloride (Hypertonic Saline 3%) 100 mls @ 20 mls/hr IV NOW ONE Stop: 06/15/23 21:02 Last Infusion: 06/15/23 21:21 Dose: Infused Documented By: Admin: 06/15/23 16:57 Dose: 20 mls/hr Documented By: MEDARDO Dextrose (Dextrose 5% Water) 1,000 mls @ 150 mls/hr IV CONT [facility] Last Admin: 06/16/23 02:40 Dose: Not Given Documented By: BRE Lisinopril (Lisinopril 10 Mg Tablet) 10 mg PO NOW ONE Stop: 06/15/23 10:17 Last Admin: 06/15/23 10:38 Dose: 10 mg Documented By: KIM Lorazepam (Lorazepam 0.5 Mg Tablet) 0.5 mg PO NOW ONE Stop: 06/15/23 15:17 Last Admin: 06/15/23 15:22 Dose: 0.5 mg Documented By: KACEY Pantoprazole Sodium (Pantoprazole 40 Mg Vial) 40 mg IV NOW ONE Stop: 06/15/23 15:17 Last Admin: 06/15/23 15:22 Dose: 40 mg Documented By: KACEY Vital Signs Vital signs: Vital Signs - 8 hr 06/15/23 10:04 06/15/23 10:38 06/15/23 12:20 Temperature 97.9 F Pulse Rate 84 84 77 Respiratory Rate 14 12 Blood Pressure 192/112 H 192/112 H 166/92 H Pulse Oximetry 99 98 Oxygen Delivery Method Room Air Room Air 06/15/23 13:45 Temperature Pulse Rate 75 Respiratory Rate 14 Blood Pressure 140/82 Pulse Oximetry 98 Oxygen Delivery Method Room Air MDM - Anxiety Lab Data 06/16/23 06:35 06/16/23 06:35 Labs: Lab Results 06/15/23 06/15/23 06/15/23 Range/Units 10:40 12:54 13:54 WBC 4.5 (4.5-11.0) X10^3/uL RBC 4.55 (4.5-5.9) X10^6/uL Hgb 14.3 (13.5-17.5) g/dL Hct 41.0 (41-53) % MCV 90.0 (80-100) fL MCH 31.4 (26-34) PG MCHC 34.9 (30-36) % RDW 12.7 (11.6-14.8) % Plt Count 257 (150-400) X10^3/uL Neut % (Auto) 59.5 (50-75) % Lymph % (Auto) 22.0 L (25-40) % Pratt % (Auto) 18.0 H (3-14) % Eos % (Auto) 0.3 L (2-4) % Baso % (Auto) 0.2 (0-2) % Neut # (Auto) 2700 (7443-0168) /uL Lymph # (Auto) 1000 L (8980-7878) /uL Pratt # (Auto) 800 (0-900) /uL Eos # (Auto) 0 (0-450) /uL Baso # (Auto) 0 (0-100) /uL PT 12.0 (9.4-12.5) SECONDS INR 1.0 (0.9-1.3) APTT 29 (25.1-36.5) SECONDS Sodium 114 L* D (137-145) mmol/L Potassium 3.4 (3.4-5.1) mmol/L Chloride 82 L (98-107) mmol/L Carbon Dioxide 24 (22-32) mmol/L BUN 8 L (9-20) mg/dL Creatinine 0.55 L (0.66-1.25) mg/dL Estimated GFR > 60 (>60) mL/min BUN/Creatinine Ratio 14.5 (6-22) Glucose 153 H (80-110) mg/dL Calcium 8.7 (8.4-10.2) mg/dL Magnesium 1.7 (1.6-2.3) mg/dL Total Bilirubin 1.1 (0.2-1.3) mg/dL AST 56 (17-59) IU/L ALT 83 H (<50) IU/L Alkaline Phosphatase 54 (38-126) U/L Total Creatine Kinase 1040 H (55-170) U/L Troponin I < 0.012 (0.01-0.034) ng/mL Total Protein 7.1 (6.3-8.2) g/dL Albumin 3.9 (3.5-5.0) g/dL Globulin 3.2 (1.7-4.1) g/dL Albumin/Globulin Ratio 1.2 (1.0-2.8) Lipase 164 (23-300) U/L TSH 0.680 (0.47-4.68) uIU/mL Urine Color Yellow Urine Appearance Clear Urine pH 7.0 (4.5-8.0) Ur Specific [place] 1.015 (1.000-1.035) Urine Protein Negative (Negative) Urine Glucose (UA) Negative (Negative) g/dL Urine Ketones 2+ H (NEGATIVE) Urine Occult Blood 1+ H (Negative) Urine Nitrate Negative (Negative) Urine Bilirubin Negative (NEGATIVE) Urine Urobilinogen 0.2 (0.2) E.U./dL Ur Leukocyte Esterase Negative (NEGATIVE) Urine RBC 1-5/hpf (0-5/HPF) Urine WBC None seen (0-5/HPF) Ur Squamous Epith Cells 0-1 /hpf (0-5/HPF) Urine Bacteria None seen (None) Ur Culture Indicated? Cult not indicated Ur Random Sodium 85 (30-90) mmol/L Urine Creatinine 79.2 mg/dL Nasal Screen MRSA (PCR) (Not Detect) Salicylates < 1.0 (<20) mg/dL U Opiates 300ng/mL cut Negative (Negative) Ur Oxycodone Screen Negative (Negative) Urine Methadone Screen Negative (Negative) Acetaminophen < 10 (10-30) ug/mL Ur Barbiturates Screen Negative (Negative) U Tricyclic Antidepress Negative (Negative) Ur Phencyclidine Scrn Negative (Negative) Ur Amphetamines Screen Negative (Negative) U Methamphetamines Scrn Negative (Negative) Ur MDMA Scrn (Ecstasy) Negative (Negative) U Benzodiazepines Scrn Positive H (Negative) Urine Cocaine Screen Negative (Negative) U Marijuana (THC) Screen Negative (Negative) SARS-CoV-2 (PCR) (Negative) Influenza A (RT-PCR) (NEGATIVE) Influenza B (RT-PCR) (NEGATIVE) RSV (PCR) (Negative) 06/15/23 06/15/23 Range/Units 15:10 15:45 WBC (4.5-11.0) X10^3/uL RBC (4.5-5.9) X10^6/uL Hgb (13.5-17.5) g/dL Hct (41-53) % MCV (80-100) fL MCH (26-34) PG MCHC (30-36) % RDW (11.6-14.8) % Plt Count (150-400) X10^3/uL Neut % (Auto) (50-75) % Lymph % (Auto) (25-40) % Pratt % (Auto) (3-14) % Eos % (Auto) (2-4) % Baso % (Auto) (0-2) % Neut # (Auto) (6637-0553) /uL Lymph # (Auto) (6570-8685) /uL Pratt # (Auto) (0-900) /uL Eos # (Auto) (0-450) /uL Baso # (Auto) (0-100) /uL PT (9.4-12.5) SECONDS INR (0.9-1.3) APTT (25.1-36.5) SECONDS Sodium 113 L* (137-145) mmol/L Potassium (3.4-5.1) mmol/L Chloride (98-107) mmol/L Carbon Dioxide (22-32) mmol/L BUN (9-20) mg/dL Creatinine (0.66-1.25) mg/dL Estimated GFR (>60) mL/min BUN/Creatinine Ratio (6-22) Glucose (80-110) mg/dL Calcium (8.4-10.2) mg/dL Magnesium (1.6-2.3) mg/dL Total Bilirubin (0.2-1.3) mg/dL AST (17-59) IU/L ALT (<50) IU/L Alkaline Phosphatase (38-126) U/L Total Creatine Kinase (55-170) U/L Troponin I (0.01-0.034) ng/mL Total Protein (6.3-8.2) g/dL Albumin (3.5-5.0) g/dL Globulin (1.7-4.1) g/dL Albumin/Globulin Ratio (1.0-2.8) Lipase (23-300) U/L TSH (0.47-4.68) uIU/mL Urine Color Urine Appearance Urine pH (4.5-8.0) Ur Specific [place] (1.000-1.035) Urine Protein (Negative) Urine Glucose (UA) (Negative) g/dL Urine Ketones (NEGATIVE) Urine Occult Blood (Negative) Urine Nitrate (Negative) Urine Bilirubin (NEGATIVE) Urine Urobilinogen (0.2) E.U./dL Ur Leukocyte Esterase (NEGATIVE) Urine RBC (0-5/HPF) Urine WBC (0-5/HPF) Ur Squamous Epith Cells (0-5/HPF) Urine Bacteria (None) Ur Culture Indicated? Ur Random Sodium (30-90) mmol/L Urine Creatinine mg/dL Nasal Screen MRSA (PCR) Not detected (Not Detect) Salicylates (<20) mg/dL U Opiates 300ng/mL cut (Negative) Ur Oxycodone Screen (Negative) Urine Methadone Screen (Negative) Acetaminophen (10-30) ug/mL Ur Barbiturates Screen (Negative) U Tricyclic Antidepress (Negative) Ur Phencyclidine Scrn (Negative) Ur Amphetamines Screen (Negative) U Methamphetamines Scrn (Negative) Ur MDMA Scrn (Ecstasy) (Negative) U Benzodiazepines Scrn (Negative) Urine Cocaine Screen (Negative) U Marijuana (THC) Screen (Negative) SARS-CoV-2 (PCR) Negative (Negative) Influenza A (RT-PCR) Flu a negative (NEGATIVE) Influenza B (RT-PCR) Flu b negative (NEGATIVE) RSV (PCR) Negative (Negative) Urine Dip Bedside Urine Glucose Negative Bedside Urine Bilirubin - Negative Bedside Urine Ketone ++ 40 Urine Specific [place] 1.015 Bedside Urine Occult Blood ++ Bedside Urine pH 7.0 Bedside Urine Protein - Negative Bedside Urine Urobilinogen - Negative Bedside Urine Nitrite - Negative Bedside Urine Leukocytes - Negative Esterase Imaging Data Chest x-ray: Radiologist's Impression: [address] [address] XRay Report Signed Patient: Oliver Teixeira MR#: [id number] : 1960 Acct:[id number] Age/Sex: 62 / M Date of Service: 06/15/23 Loc: ED Accession Number: [id number] Procedure: XR chest 1V Ordering Provider: Adry Byrd D.O. PROCEDURE: XR CHEST 1V INDICATIONS: chest pain TECHNIQUE: One view of the chest was acquired. COMPARISON: [facility], , XR CHEST 1V, 06/13/2023, 10:17. FINDINGS: Surgical changes and devices: None. Lungs and pleura: Lungs are clear. No pleural effusions or pneumothorax. Mediastinum: Mediastinal contours appear normal. Heart size is normal. Bones and chest wall: No suspicious bony lesions. Overlying soft tissues appear unremarkable. IMPRESSION: No acute process. Dictated by: Yao Valdivia M.D. on 06/15/2023 at 10:55 Approved by: Yao Valdivia M.D. on 06/15/2023 at 10:56 CT scan - head: Radiologist's Impression: Close Head CT (Signed) Yao Valdivia - 06/15/23 Chest X-Ray (Signed) Yao Valdivia - 06/15/23 Chest X-Ray (Signed) Arvin Murdock - 06/13/23 DI Result CC 04/02/[address] (Signed) Moises Ladd - 05/29/20 Telemetry Strips 03/02/19 Launch?[place] [address] CT Scan Report Signed Patient: Oliver Teixeira MR#: [id number] : 1960 Acct:[id number] Age/Sex: 62 / M Date of Service: 06/15/23 Loc: ED Accession Number: [id number] Procedure: CT head/brain wo con Ordering Provider: Adry Byrd D.O. PROCEDURE: CT HEAD/BRAIN WO CON INDICATIONS: hyponatremia TECHNIQUE: Noncontrast 4.5 mm thick angled axial sections acquired from the foramen magnum to the vertex, with coronal and sagittal reformats. For radiation dose reduction, the following was used: automated exposure control, adjustment of mA and/or kV according to patient size. COMPARISON: None. FINDINGS: Image quality: Excellent. CSF spaces: Basal cisterns are patent. No extra-axial fluid collections. The ventricles are symmetric in size and shape. Brain: No intracranial bleeds or masses. There is cerebral volume loss for age, with resultant ventricular and sulcal prominence. There are periventricular and deep white matter chronic small vessel ischemic changes. There is intracranial internal carotid artery atherosclerosis. Skull and face: Calvarium and visualized facial bones appear intact, without suspicious lesions. Sinuses: Moderate bilateral maxillary sinus fluid is present. IMPRESSION: 1. No acute intracranial abnormality. 2. Bilateral maxillary sinusitis. Dictated by: Yao Valdivia M.D. on 06/15/2023 at 12:24 Approved by: Yao Valdivia M.D. on 06/15/2023 at 12:25 ECG Data Attestation: I personally reviewed and interpreted this ECG as follows: Prior ECG tracings: available for review Interpretation: Sinus rhythm rate of 79 MN 184 QRS of [address] No acute [address] elevation depression noted. Patient has prior from 06/13/2023 with no changes. MDM Narrative Medical decision making narrative: Pleasant 62-year-old male who presents with complaint of anxiety, insomnia and heartburn that is not resolving states he is had epigastric discomfort radiating up to his mouth which has been persistent with a taste. He is hypertensive. He is had recent influenza infection on 06/08/2023. Was seen here on 06/13 was treated for anxiety after cardiac workup. Patient was slightly hyponatremic at that time at 127. and today is 114 likely the cause of patient's sensation of anxiety. Discussed with patient family he has been very anxious unable to sleep he has not had any acute movement changes, seizure activity and has not had any difficulty with ambulating but does seem to be little bit confused. We will obtain head CT is negative for acute change. Chest x-ray shows no acute change. Labs show white count of 4.5 hemoglobin of 14 with platelets of 257 normal renal function, BUN the chloride 82 potassium 3.4 and a sodium of 114. Glucose is 153. CK is 1040 slightly up from last visit with a negative troponin. Patient was flu A on 06/08/2023 this was not repeated. Plan for urinalysis with urine studies including sodium and creatinine. UA shows ketones positive for occult blood specific gravity of 1.0151-5 RBCs no leuks no nitrates no bacteria no white cells. Urine sodium 85 with a urine creatinine 79.2. Urine chloride as a send out. FENA is 0.5% suggesting prerenal source. Osmolality was ordered. Spoke with Dr. Mireles, nephrology. Asked for UA, urine sodium, urine creatinine urine chloride was specific gravity. After urine sample has been obtained can give 1 dose of Lasix 40 mg IV. He would hold on 3% saline until urine studies are all resulted unless patient starts to have seizure activity. Asked for call back after results for next steps. Re-contacted Dr. Mireles from nephrology with urine studies have not heard back Discussed with Dr. Barbosa hospitalist accepts for admission. Discussed recommendations from Nephrology so far. Discharge Plan Departure Patient Disposition: Admitted As Inpatient Clinical Impression: Hyponatremia, Influenza A Admit Date/Time: 06/15/23 15:54 Admit Provider: Dalton Barbosa
--- NOTE | 2023-06-15 11:58 | DI.CT.S_ITS ---
PROCEDURE: CT HEAD/BRAIN WO CON INDICATIONS: hyponatremia TECHNIQUE: Noncontrast 4.5 mm thick angled axial sections acquired from the foramen magnum to the vertex, with coronal and sagittal reformats. For radiation dose reduction, the following was used: automated exposure control, adjustment of mA and/or kV according to patient size. COMPARISON: None. FINDINGS: Image quality: Excellent. CSF spaces: Basal cisterns are patent. No extra-axial fluid collections. The ventricles are symmetric in size and shape. Brain: No intracranial bleeds or masses. There is cerebral volume loss for age, with resultant ventricular and sulcal prominence. There are periventricular and deep white matter chronic small vessel ischemic changes. There is intracranial internal carotid artery atherosclerosis. Skull and face: Calvarium and visualized facial bones appear intact, without suspicious lesions. Sinuses: Moderate bilateral maxillary sinus fluid is present. IMPRESSION: 1. No acute intracranial abnormality. 2. Bilateral maxillary sinusitis. Dictated by: Yao Valdivia M.D. on 06/15/2023 at 12:24 Approved by: Yao Valdivia M.D. on 06/15/2023 at 12:25
[2023-06-15 12:19] LABS: Acetaminophen < 10 ug/mL (10-30); Salicylate < 1.0 mg/dL (<20)
--- NOTE | 2023-06-15 12:43 | CM.SWNOTE ---
Initial DCP Assessment Patient is 62 y/o male who presents to the ED for the second time in a few days due to concern for acid reflux, anxiety, heartburn, insomnia for the last several days. Patient endorses he had the flu on 06/08/23 and has been feeling this way since then. Patient's PCP is Dr. Tasha Lentz with [facility] in [place], patient has [employer] insurance. Patient has hx of insomnia, hyponatremia, Anxiety, Depression, essential hypertension, and GERD. EAR MACHINE OPERATOR receives consult to assess patient and assist in addressing patient's anxiety. Further lab work is received and patient has a resulted critical lab of low sodium levels and elevated CK levels. ED provider endorses that patient will need to be admitted to the ICU and low sodium levels likely explain patient's illness and anxiety. EAR MACHINE OPERATOR enters room to meet with patient. Patient presents as A/Ox4, present in room is patient's spouse Mendy. Patient endorses independence ADLs at baseline and can drive. Patient lives with spouse Mendy in [place]. Patient endorses that since he has had the flu he has had trouble sleeping, discomfort, no appetite and increase in heartburn, acid reflux and anxiety. Patient endorses he has been experience paranoia about his health and inability to sleep and panic attacks about it as well. Patient states when he was sick with the flu he took over the counter medication on an empty stomach and perhaps that did not help his heartburn/acid reflux. Patient states they have family in [place]. At this time there are no anticipated DCP needs, patient would benefit from PCP f/u appt upon d/c. Patient has hx of ambien rx, was given ativan in ED, and hx of zoloft rx and would benefit from f/u with provider regarding medications. Plan: patient to be admitted to the ICU for further treatment and evaluation. DCP to f/u on POC needs. ROGER Martin Discharge Planning/Care Management CM Discharge Assessment Start: 06/15/23 12:40 Freq: Status: Active Protocol: Document 06/15/23 12:41 LN (Rec: 06/15/23 12:43 LN [id number]) Discharge Planning Assessment Assigned Test Equipment Mechanic ROGER Luke Advance Directives? No History Provided By Patient,Significant Other Has Patient been admitted in last 30 No days? Prior Living Arrangements House Household Members spouse Type of transportation used prior to Drives own vehicle admit Independent with ADL's Yes Is patient alert and oriented? Yes Comment no anticipated needs at this time Review Status In Process Please Provide Date Initial DC 06/15/23 Assessment Was Performed
[2023-06-15 13:31] LABS: Appearance Urine UA CLEAR; Bilirubin Urine UA NEGATIVE (NEGATIVE); Color Urine UA YELLOW; Glucose Urine UA NEGATIVE (Negative); Ketones Urine UA 2+ (NEGATIVE); Leukocyte Esterase Urine UA NEGATIVE (NEGATIVE); Nitrite Urine UA NEGATIVE (Negative); Occult Blood Urine UA 1+ (Negative); Protein Urine UA NEGATIVE (Negative); Specific Gravity Urine UA 1.015 (1.000-1.035); Urobilinogen Urine UA 0.2 E.U./dL (0.2)
[2023-06-15 13:39] LABS: Ur Creatinine Normal (Normal); Ur Specific Gravity Normal (Normal); Urine Benzodiazepines Positive (Negative); Urine pH Normal (Normal)
[2023-06-15 13:40] LABS: UR Morphine/Opiate cutoff 300 Negative (Negative); Urine Amphetamines Negative (Negative); Urine Barbiturates Negative (Negative); Urine Cocaine Negative (Negative); Urine MDMA Negative (Negative); Urine Methadone Negative (Negative); Urine Methamphetamines Negative (Negative); Urine Oxycodone Negative (Negative); Urine Phencyclidine Negative (Negative); Urine Tetrahydrocannabinol Negative (Negative); Urine Tricyclic Antidepressant Negative (Negative)
[2023-06-15 13:45] LABS: Bacteria Urine None Seen; Culture Indicated Urine Cult Not Indicated; RBC Urine 1-5/HPF (0-5/HPF); Squamous Epithelial Cell Urine 0-1 /HPF (0-5/HPF); WBC Urine None Seen (0-5/HPF)
[2023-06-15 14:29] LABS: Creatinine Urine Random 79.2 mg/dL; Sodium Urine Random 85 mmol/L (30-90)
[2023-06-15] MEDS: LORazepam 0.5 MG TABLET PO (15:22)
[2023-06-15] MEDS: PANTOPRAZOLE 40 MG VIAL IV (15:22)
[2023-06-15 15:57] LABS: Sodium 113 mmol/L (137-145)
--- NOTE | 2023-06-15 16:14 | PM.HP.1 ---
History of Present Illness History of Present Illness Date Patient Seen: 06/15/23 Chief complaint: heartburn not getting better aniexty paranoid Narrative: Oliver Teixeira is a 62yo M with PMH of recent Influenza A, BPH, GERD, HTN, HLD, DM2, anxiety and ED who presents with increased anxiety and found to have a sodium of 114. Patient was in our ED 2 days ago for acid reflux and had a sodium of 127. He was discharged home on omeprazole. He notes he has had increasingly worsening anxiety, insomnia, and GERD the past few days. Wasn't drinking excess amounts of water. He takes zoloft for anxiety and depression. He denies CP, SOB, NV, abd pain or diarrhea. PFSH Medical History Hematuria Allergies Cataracts, bilateral (~2004) Elevated CK Erectile dysfunction BPH w urinary obs/LUTS Anxiety Depression Glaucoma (~2004) Hypogonadism male Essential hypertension (~2009) Kidney cyst, acquired Blurred vision Dry skin Constipation GERD (gastroesophageal reflux disease) Surgical History S/P cataract extraction History of esophagogastroduodenoscopy (EGD) History of colonoscopy Family History Mother Diabetes mellitus Hyperlipidemia Hypertension Father Hypertension Hyperlipidemia Heart disease Social History household members: spouse Smoking Status: Former smoker Meds Home Medications and Allergies Home Medications Medication Instructions Recorded Confirmed Type latanoprost 0.005 % eye drops 1 drop EYE-BOTH DAILY 01/24/20 06/15/23 History lisinopril 10 mg tablet 10 mg PO DAILY 05/04/20 06/15/23 History ezetimibe 10 mg tablet 10 mg PO DAILY 06/08/23 06/15/23 History metformin 500 mg tablet,extended 500 mg PO BID 06/08/23 06/15/23 History release 24 hr rosuvastatin 10 mg tablet 10 mg PO ONCE PM 06/08/23 06/15/23 History tamsulosin 0.4 mg capsule 0.4 mg PO DAILY 06/08/23 06/15/23 History finasteride 5 mg tablet 5 mg PO DAILY 06/15/23 06/15/23 History lorazepam 0.5 mg tablet 0.25 mg PO BEDTIME PRN sleep 06/15/23 06/15/23 History omeprazole 40 mg capsule,delayed 40 mg PO BID 06/15/23 06/15/23 History release sertraline 25 mg tablet 25 mg PO DAILY 06/15/23 06/15/23 History timolol 0.5 % eye drops (Betimol) 1 drp ophthalmic (eye) DAILY 06/15/23 06/15/23 History zolpidem 10 mg tablet (Ambien) 10 mg PO BEDTIME PRN Insomnia 06/15/23 06/15/23 History Allergies Allergy/AdvReac Type Severity Reaction Status Date / Time No Known Drug Allergies Allergy Verified 06/15/23 10:11 Review of Systems Review of Systems Narrative: All other systems reviewed with the patient and are negative unless otherwise stated. Exam Vital Signs (past 8 hours): - 06/15/23 10:04 06/15/23 10:38 06/15/23 12:20 Temperature 97.9 F Pulse Rate 84 84 77 Respiratory Rate 14 12 Blood Pressure 192/112 H 192/112 H 166/92 H Pulse Oximetry 99 98 Oxygen Delivery Method Room Air Room Air 06/15/23 13:45 06/15/23 14:23 06/15/23 14:30 Temperature Pulse Rate 75 74 73 Respiratory Rate 14 15 14 Blood Pressure 140/82 Pulse Oximetry 98 96 96 Oxygen Delivery Method Room Air 06/15/23 14:30 06/15/23 15:00 06/15/23 15:00 Temperature Pulse Rate 75 Respiratory Rate 16 Blood Pressure 119/73 135/82 Pulse Oximetry 94 Oxygen Delivery Method Oxygen Delivery Method Room Air Narrative Exam Narrative: GEN: no acute distress HEENT: moist mucous membranes, PERRL NECK: trachea midline, no JVD CV: regular rate and rhythm, no murmurs PULM: clear bilaterally ABD: soft, nontender, nondistended, no organomegaly EXT: warm and well perfused with no edema NEURO: awake, alert, oriented, no focal deficits Objective Labs 06/15/23 10:40 06/15/23 15:10 Labs: Laboratory Results - last 24 hr 06/15/23 06/15/23 06/15/23 10:40 12:54 13:54 WBC 4.5 RBC 4.55 Hgb 14.3 Hct 41.0 MCV 90.0 MCH 31.4 MCHC 34.9 RDW 12.7 Plt Count 257 Neut % (Auto) 59.5 Lymph % (Auto) 22.0 L [place] % (Auto) 18.0 H Eos % (Auto) 0.3 L Baso % (Auto) 0.2 Neut # (Auto) 2700 Lymph # (Auto) 1000 L [place] # (Auto) 800 Eos # (Auto) 0 Baso # (Auto) 0 PT 12.0 INR 1.0 APTT 29 Sodium 114 L* D Potassium 3.4 Chloride 82 L Carbon Dioxide 24 BUN 8 L Creatinine 0.55 L Estimated GFR > 60 BUN/Creatinine Ratio 14.5 Glucose 153 H Calcium 8.7 Magnesium 1.7 Total Bilirubin 1.1 AST 56 ALT 83 H Alkaline Phosphatase 54 Total Creatine Kinase 1040 H Troponin I < 0.012 Total Protein 7.1 Albumin 3.9 Globulin 3.2 Albumin/Globulin Ratio 1.2 Lipase 164 TSH 0.680 Urine Color Yellow Urine Appearance Clear Urine pH 7.0 Ur Specific [place] 1.015 Urine Protein Negative Urine Glucose (UA) Negative Urine Ketones 2+ H Urine Occult Blood 1+ H Urine Nitrate Negative Urine Bilirubin Negative Urine Urobilinogen 0.2 Ur Leukocyte Esterase Negative Urine RBC 1-5/hpf Urine WBC None seen Ur Squamous Epith Cells 0-1 /hpf Urine Bacteria None seen Ur Culture Indicated? Cult not indicated Ur Random Sodium 85 Urine Creatinine 79.2 Salicylates < 1.0 U Opiates 300ng/mL cut Negative Ur Oxycodone Screen Negative Urine Methadone Screen Negative Acetaminophen < 10 Ur Barbiturates Screen Negative U Tricyclic Antidepress Negative Ur Phencyclidine Scrn Negative Ur Amphetamines Screen Negative U Methamphetamines Scrn Negative Ur MDMA Scrn (Ecstasy) Negative U Benzodiazepines Scrn Positive H Urine Cocaine Screen Negative U Marijuana (THC) Screen Negative 06/15/23 15:10 WBC RBC Hgb Hct MCV MCH MCHC RDW Plt Count Neut % (Auto) Lymph % (Auto) [place] % (Auto) Eos % (Auto) Baso % (Auto) Neut # (Auto) Lymph # (Auto) [place] # (Auto) Eos # (Auto) Baso # (Auto) PT INR APTT Sodium 113 L* Potassium Chloride Carbon Dioxide BUN Creatinine Estimated GFR BUN/Creatinine Ratio Glucose Calcium Magnesium Total Bilirubin AST ALT Alkaline Phosphatase Total Creatine Kinase Troponin I Total Protein Albumin Globulin Albumin/Globulin Ratio Lipase TSH Urine Color Urine Appearance Urine pH Ur Specific [place] Urine Protein Urine Glucose (UA) Urine Ketones Urine Occult Blood Urine Nitrate Urine Bilirubin Urine Urobilinogen Ur Leukocyte Esterase Urine RBC Urine WBC Ur Squamous Epith Cells Urine Bacteria Ur Culture Indicated? Ur Random Sodium Urine Creatinine Salicylates U Opiates 300ng/mL cut Ur Oxycodone Screen Urine Methadone Screen Acetaminophen Ur Barbiturates Screen U Tricyclic Antidepress Ur Phencyclidine Scrn Ur Amphetamines Screen U Methamphetamines Scrn Ur MDMA Scrn (Ecstasy) U Benzodiazepines Scrn Urine Cocaine Screen U Marijuana (THC) Screen Assessment & Plan Assessment & Plan narrative: # severe acute hyponatremia -Na 127 on 06/13, now 114 two days later -dropped further to 113 -start 3% saline 20cc/hr for 100mL -q4h BMP -urine sodium normal suggesting SIADH -avoid overcorrection, goal sodium at 2pm on 06/16 is 120 # rhabdomyalosis -CK 1040, unclear cause -no sign of kidney impairment -monitor Cr and daily CK's # anxiety and insomnia -ativan po 0.5mg q6h PRN -ambien nightly PRN # GERD -PPI and GI cocktail PRN # BPH -continue flomax # HTN -continue lisinopril # HLD -continue statin and zetia # DM2 -hold metformin -SSI -check A1c Code status is full code. DVT prophylaxis with Lovenox. Proxy is Mendy. I have reviewed home meds and used all available resources to reconcile the home meds. Case discussed with ED physician/APC and patient will be admitted to the hospitalist service for further workup and management. This patient will be admitted as ICU and will require greater than 2 midnights of hospital time to treat severe hyponatremia.
[2023-06-15] MEDS: MAGNESIUM SULFATE 2 GM/50 ML PIGGYBACK IV (16:56)
[2023-06-15] MEDS: ENOXAPARIN 40 MG/0.4 ML SYRINGE SUBCUT (16:57)
[2023-06-15] MEDS: SODIUM CHLORIDE 3 % 100 ML 20 ML IV (16:57)
--- NOTE | 2023-06-15 17:58 | P.TELICUCN_ITS ---
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 Barbosa and bedside RN Narrative: Patient is a 62 year old male with history of HTN and DM who is recovering from a flu, presents with heart burn and anxiety. He reports having difficulty sleeping. Denies fever/chills, chest pain, abdominal pain, or increase fluid intake. On admission, labs notable for Na 114 and Cl 82. Urine Na 82 and urine creatinine 79.2. Appears euvolemia, on room air. [facility] Medical History Hematuria Allergies Cataracts, bilateral (~2004) Elevated CK Erectile dysfunction BPH w urinary obs/LUTS Anxiety Depression Glaucoma (~2004) Hypogonadism male Essential hypertension (~2009) Kidney cyst, acquired Blurred vision Dry skin Constipation GERD (gastroesophageal reflux disease) Surgical History S/P cataract extraction History of esophagogastroduodenoscopy (EGD) History of colonoscopy Family History Mother Diabetes mellitus Hyperlipidemia Hypertension Father Hypertension Hyperlipidemia Heart disease Social History household members: spouse Smoking Status: Former smoker Current Medications Current Medications Medications: Home Medications latanoprost 0.005 % eye drops 1 drop EYE-BOTH DAILY 01/24/20 [History Confirmed 06/15/23] lisinopril 10 mg tablet 10 mg PO DAILY 05/04/20 [History Confirmed 06/15/23] ezetimibe 10 mg tablet 10 mg PO DAILY 06/08/23 [History Confirmed 06/15/23] metformin 500 mg tablet,extended release 24 hr 500 mg PO BID 06/08/23 [History Confirmed 06/15/23] rosuvastatin 10 mg tablet 10 mg PO ONCE PM 06/08/23 [History Confirmed 06/15/23] tamsulosin 0.4 mg capsule 0.4 mg PO DAILY 06/08/23 [History Confirmed 06/15/23] finasteride 5 mg tablet 5 mg PO DAILY 06/15/23 [History Confirmed 06/15/23] lorazepam 0.5 mg tablet 0.25 mg PO BEDTIME PRN sleep 06/15/23 [History Confirmed 06/15/23] omeprazole 40 mg capsule,delayed release 40 mg PO BID 06/15/23 [History Confirmed 06/15/23] sertraline 25 mg tablet 25 mg PO DAILY 06/15/23 [History Confirmed 06/15/23] timolol 0.5 % eye drops (Betimol) 1 drp ophthalmic (eye) DAILY 06/15/23 [History Confirmed 06/15/23] zolpidem 10 mg tablet (Ambien) 10 mg PO BEDTIME PRN Insomnia 06/15/23 [History Confirmed 06/15/23] Visit Medications (administered) Generic Name Dose Route Start Last Admin Trade Name Freq PRN Reason Stop Dose Admin Enoxaparin Sodium 40 mg 06/15/23 16:10 06/15/23 16:57 Enoxaparin 40 Mg/0.4 Ml Syringe SUBCUT 40 mg DAILY FLORESITA Administration Sodium Chloride 100 mls @ 20 mls/hr 06/15/23 16:03 06/15/23 16:57 Hypertonic Saline 3% IV 06/15/23 21:02 20 mls/hr NOW ONE Administration Exam Vital Signs (past 8 hours): - 06/15/23 10:04 06/15/23 10:38 06/15/23 12:20 Temperature 97.9 F Pulse Rate 84 84 77 Respiratory Rate 14 12 Blood Pressure 192/112 H 192/112 H 166/92 H Pulse Oximetry 99 98 Oxygen Delivery Method Room Air Room Air 06/15/23 13:45 06/15/23 14:23 06/15/23 14:30 Temperature Pulse Rate 75 74 73 Respiratory Rate 14 15 14 Blood Pressure 140/82 Pulse Oximetry 98 96 96 Oxygen Delivery Method Room Air 06/15/23 14:30 06/15/23 15:00 06/15/23 15:00 Temperature Pulse Rate 75 Respiratory Rate 16 Blood Pressure 119/73 135/82 Pulse Oximetry 94 Oxygen Delivery Method 06/15/23 15:30 06/15/23 15:30 06/15/23 16:00 Temperature Pulse Rate 76 71 Respiratory Rate 19 15 Blood Pressure 131/79 Pulse Oximetry 97 96 Oxygen Delivery Method Room Air 06/15/23 16:00 06/15/23 16:07 06/15/23 16:29 Temperature 98.3 F Pulse Rate 78 80 Respiratory Rate 20 17 Blood Pressure 131/78 128/85 Pulse Oximetry 98 98 Oxygen Delivery Method 06/15/23 16:29 06/15/23 16:30 06/15/23 16:30 Temperature Pulse Rate 79 Respiratory Rate 21 Blood Pressure 130/88 135/82 Pulse Oximetry 97 Oxygen Delivery Method 06/15/23 17:07 06/15/23 17:21 06/15/23 17:30 Temperature Pulse Rate 78 86 Respiratory Rate 24 19 34 H Blood Pressure 140/87 Pulse Oximetry 98 97 Oxygen Delivery Method Oxygen Delivery Method Room Air Narrative Exam Narrative: NAD Objective Labs 06/15/23 10:40 06/15/23 15:10 Labs: Laboratory Results - last 24 hr 06/15/23 06/15/23 06/15/23 10:40 12:54 13:54 WBC 4.5 RBC 4.55 Hgb 14.3 Hct 41.0 MCV 90.0 MCH 31.4 MCHC 34.9 RDW 12.7 Plt Count 257 Neut % (Auto) 59.5 Lymph % (Auto) 22.0 L [place] % (Auto) 18.0 H Eos % (Auto) 0.3 L Baso % (Auto) 0.2 Neut # (Auto) 2700 Lymph # (Auto) 1000 L [place] # (Auto) 800 Eos # (Auto) 0 Baso # (Auto) 0 PT 12.0 INR 1.0 APTT 29 Sodium 114 L* D Potassium 3.4 Chloride 82 L Carbon Dioxide 24 BUN 8 L Creatinine 0.55 L Estimated GFR > 60 BUN/Creatinine Ratio 14.5 Glucose 153 H Calcium 8.7 Magnesium 1.7 Total Bilirubin 1.1 AST 56 ALT 83 H Alkaline Phosphatase 54 Total Creatine Kinase 1040 H Troponin I < 0.012 Total Protein 7.1 Albumin 3.9 Globulin 3.2 Albumin/Globulin Ratio 1.2 Lipase 164 TSH 0.680 Urine Color Yellow Urine Appearance Clear Urine pH 7.0 Ur Specific [place] 1.015 Urine Protein Negative Urine Glucose (UA) Negative Urine Ketones 2+ H Urine Occult Blood 1+ H Urine Nitrate Negative Urine Bilirubin Negative Urine Urobilinogen 0.2 Ur Leukocyte Esterase Negative Urine RBC 1-5/hpf Urine WBC None seen Ur Squamous Epith Cells 0-1 /hpf Urine Bacteria None seen Ur Culture Indicated? Cult not indicated Ur Random Sodium 85 Urine Creatinine 79.2 Salicylates < 1.0 U Opiates 300ng/mL cut Negative Ur Oxycodone Screen Negative Urine Methadone Screen Negative Acetaminophen < 10 Ur Barbiturates Screen Negative U Tricyclic Antidepress Negative Ur Phencyclidine Scrn Negative Ur Amphetamines Screen Negative U Methamphetamines Scrn Negative Ur MDMA Scrn (Ecstasy) Negative U Benzodiazepines Scrn Positive H Urine Cocaine Screen Negative U Marijuana (THC) Screen Negative 06/15/23 15:10 WBC RBC Hgb Hct MCV MCH MCHC RDW Plt Count Neut % (Auto) Lymph % (Auto) [place] % (Auto) Eos % (Auto) Baso % (Auto) Neut # (Auto) Lymph # (Auto) [place] # (Auto) Eos # (Auto) Baso # (Auto) PT INR APTT Sodium 113 L* Potassium Chloride Carbon Dioxide BUN Creatinine Estimated GFR BUN/Creatinine Ratio Glucose Calcium Magnesium Total Bilirubin AST ALT Alkaline Phosphatase Total Creatine Kinase Troponin I Total Protein Albumin Globulin Albumin/Globulin Ratio Lipase TSH Urine Color Urine Appearance Urine pH Ur Specific [place] Urine Protein Urine Glucose (UA) Urine Ketones Urine Occult Blood Urine Nitrate Urine Bilirubin Urine Urobilinogen Ur Leukocyte Esterase Urine RBC Urine WBC Ur Squamous Epith Cells Urine Bacteria Ur Culture Indicated? Ur Random Sodium Urine Creatinine Salicylates U Opiates 300ng/mL cut Ur Oxycodone Screen Urine Methadone Screen Acetaminophen Ur Barbiturates Screen U Tricyclic Antidepress Ur Phencyclidine Scrn Ur Amphetamines Screen U Methamphetamines Scrn Ur MDMA Scrn (Ecstasy) U Benzodiazepines Scrn Urine Cocaine Screen U Marijuana (THC) Screen Assessment & Plan Assessment & Plan narrative: NEURO: # Anxiety -- Cont ativan as needed -- Agree with holding zoloft RESP: -- On room air -- Encourage IS CVS: -- MAP goal > 65 : # Hyponatremia -- Possible hypovolemia vs euvolemia hyponatremia -- Recommend checking cortisol am, TSH, and urine osm -- On hypertonic saline 25 cc/hr -- Agree with BMP every 4 hours -- Goal Na 120 by tomorrow 2 pm -- Monitor UOP closely -- Please notify MD if UOP > 200 mL for 2 hours as a stat BMP will need to sent along with holding hypertonic saline to avoid overcorrection ENDO: -- Goal BS < 180 D/w bedside RN and Dr. Barbosa. Time Spent With Patient Time with patient: 30 to 49 minutes with 50% spent counseling/coordinating care
[2023-06-15 20:58] LABS: Influenza A - CEPHEID Flu A NEGATIVE (NEGATIVE); Influenza B - CEPHEID Flu B NEGATIVE (NEGATIVE); Respiratory Syncytial Virus Negative (Negative)
[2023-06-15 21:01] LABS: BUN Creatinine Ratio 9.7 (6-22); Blood Urea Nitrogen 6 mg/dL (9-20); Calcium 7.8 mg/dL (8.4-10.2); Carbon Dioxide 23 mmol/L (22-32); Chloride 86 mmol/L (98-107); Estimated Glomerular Filt Rate > 60 mL/min (>60); Glucose 121 mg/dL (80-110); HEMOLYSIS 20 (0-50); Potassium 3.5 mmol/L (3.4-5.1)
[2023-06-15 21:12] LABS: COVID-19 CEPHEID 4-PLEX PCR Negative (Negative)
[2023-06-15 21:12] LABS: Sodium 116 mmol/L (137-145)
[2023-06-15] MEDS: ZOLPIDEM 5 MG TABLET 10 MG PO (21:13)
[2023-06-15] MEDS: PANTOPRAZOLE DR 40 MG TABLET PO (21:13)
[2023-06-15] MEDS: ATORVASTATIN 20 MG TABLET PO (21:14)
[2023-06-15] MEDS: DEXTROSE 5% WATER 1,000 ML 100 ML IV (21:30)
--- NOTE | 2023-06-15 21:57 | PC.NURSE ---
2124--urine output has been 875ml since 1899; Dr Abreu notified of UOP and Na-116; orders rec'd; 3% Saline was completed and D5W at 100ml/hr started
[2023-06-15 23:15] LABS: MRSA (Nasal) PCR Not Detected (Not Detect)
[2023-06-16] VITALS (54 sets, daily range): BP systolic 96–136; BP diastolic 54–86; PULSE 61–85; RESP 12–31; TEMP 36.4–37.2; O2SAT 84–100
[2023-06-16 00:16] LABS: Sodium 118 mmol/L (137-145)
--- NOTE | 2023-06-16 00:50 | PC.NURSE ---
0035--sodium level-[address] Abreu; orders rec'd; increased D5W to 150ml/hr; will recheck sodium level in 2 hours
[2023-06-16 03:00] LABS: Sodium 116 mmol/L (137-145)
--- NOTE | 2023-06-16 03:11 | PC.NURSE ---
0305--Sodium level 116; pt urinated 775ml yellow urine; Dr Abreu called with status update and orders rec'd; decreased D5W to 100ml; will recheck labs at 0700
[2023-06-16] MEDS: MAG HYDROX/ALUMINUM/SIMETH SUS 20 ML, LIDOCAINE VISCOUS 2% 15 ML PO ×2 (05:16→14:07)
--- NOTE | 2023-06-16 05:19 | PC.NURSE ---
0500--Dr Abreu called to check on pt; status report given and orders rec'd; D5W stopped; tolerating p.o. intake; pt given warm blanket per request
[2023-06-16 06:49] LABS: Add Manual Diff / Slide Review NO; Basophils Absolute Auto 0 /uL (0-100); Basophils Percent Auto 0.3 % (0-2); Eosinophils Absolute Auto 0 /uL (0-450); Eosinophils Percent Auto 0.4 % (2-4); Hematocrit 40.3 % (41-53); Lymphocytes Absolute Auto 1100 /uL (1100-4500); Lymphocytes Percent Auto 23.3 % (25-40); Mean Corpuscular HGB Conc 34.8 % (30-36); Mean Corpuscular Hemoglobin 31.2 PG (26-34); Mean Corpuscular Volume 89.6 fL (80-100); Monocytes Absolute Auto 1200 /uL (0-900); Monocytes Percent Auto 25.4 % (3-14); Neutrophils Absolute Auto 2400 /uL (1500-7000); Neutrophils Percent Auto 50.6 % (50-75); Platelet Count 276 X10^3/uL (150-400); Red Blood Cell Count 4.49 X10^6/uL (4.5-5.9); Red Cell Distribution Width 13.2 % (11.6-14.8); White Blood Cell Count 4.8 X10^3/uL (4.5-11.0)
[2023-06-16 07:05] LABS: BUN Creatinine Ratio 9.8 (6-22); Blood Urea Nitrogen 6 mg/dL (9-20); Calcium 7.8 mg/dL (8.4-10.2); Carbon Dioxide 24 mmol/L (22-32); Chloride 87 mmol/L (98-107); Estimated Glomerular Filt Rate > 60 mL/min (>60); Glucose 110 mg/dL (80-110); HEMOLYSIS 27 (0-50); Potassium 3.6 mmol/L (3.4-5.1)
[2023-06-16 07:06] LABS: Creatine Kinase 876 U/L (55-170); Magnesium 2.3 mg/dL (1.6-2.3)
[2023-06-16 07:14] LABS: Sodium 116 mmol/L (137-145)
[2023-06-16] MEDS: ENOXAPARIN 40 MG/0.4 ML SYRINGE SUBCUT (08:42)
[2023-06-16] MEDS: EZETIMIBE 10 MG TABLET PO (08:43)
[2023-06-16] MEDS: LORazepam 0.5 MG TABLET PO (08:43)
[2023-06-16] MEDS: lisinopriL 10 MG TABLET PO (08:43)
[2023-06-16] MEDS: FINASTERIDE 5 MG TABLET PO (08:43)
[2023-06-16] MEDS: PANTOPRAZOLE DR 40 MG TABLET PO ×2 (08:43→21:53)
--- NOTE | 2023-06-16 08:57 | P.TELICUPN_ITS ---
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 -- D5w started yesterday for rapid correction- now held this am after Na back down. Goal Na remains 119-121 by 2 pm today Patient states he did not sleep well and still feels anxious. Has heartburn. Follows with GI as OP, has known ulcers Current Medications Current Medications Medications: Home Medications latanoprost 0.005 % eye drops 1 drop EYE-BOTH DAILY 01/24/20 [History Confirmed 06/15/23] lisinopril 10 mg tablet 10 mg PO DAILY 05/04/20 [History Confirmed 06/15/23] ezetimibe 10 mg tablet 10 mg PO DAILY 06/08/23 [History Confirmed 06/15/23] metformin 500 mg tablet,extended release 24 hr 500 mg PO BID 06/08/23 [History Confirmed 06/15/23] rosuvastatin 10 mg tablet 10 mg PO ONCE PM 06/08/23 [History Confirmed 06/15/23] tamsulosin 0.4 mg capsule 0.4 mg PO DAILY 06/08/23 [History Confirmed 06/15/23] finasteride 5 mg tablet 5 mg PO DAILY 06/15/23 [History Confirmed 06/15/23] lorazepam 0.5 mg tablet 0.25 mg PO BEDTIME PRN sleep 06/15/23 [History Confirmed 06/15/23] omeprazole 40 mg capsule,delayed release 40 mg PO BID 06/15/23 [History Confirmed 06/15/23] sertraline 25 mg tablet 25 mg PO DAILY 06/15/23 [History Confirmed 06/15/23] timolol 0.5 % eye drops (Betimol) 1 drp ophthalmic (eye) DAILY 06/15/23 [History Confirmed 06/15/23] zolpidem 10 mg tablet (Ambien) 10 mg PO BEDTIME PRN Insomnia 06/15/23 [History Confirmed 06/15/23] Visit Medications (administered) Generic Name Dose Route Start Last Admin Trade Name Freq PRN Reason Stop Dose Admin Atorvastatin Calcium 20 mg 06/15/23 21:00 06/15/23 21:14 Atorvastatin 20 Mg Tablet PO 20 mg BEDTIME FLORESITA Administration Al Hydrox/Mg Hydrox/ 0 ml 06/15/23 17:53 06/16/23 05:16 Simethicone 20 ml/ Lidocaine PO 35 ml HCl 15 ml Q8H PRN Administration GI upset Ezetimibe 10 mg 06/16/23 09:00 06/16/23 08:43 Ezetimibe 10 Mg Tablet PO 10 mg DAILY FLORESITA Administration Enoxaparin Sodium 40 mg 06/15/23 16:10 06/16/23 08:42 Enoxaparin 40 Mg/0.4 Ml Syringe SUBCUT 40 mg DAILY FLORESITA Administration Finasteride 5 mg 06/16/23 09:00 06/16/23 08:43 Finasteride 5 Mg Tablet PO 5 mg DAILY FLORESITA Administration Dextrose 1,000 mls @ 100 mls/hr 06/15/23 21:45 06/16/23 03:09 Dextrose 5% Water IV 100 mls/hr CONT FLORESITA Infusion Insulin Human Lispro 0 unit 06/15/23 21:00 06/16/23 08:55 Insulin Lispro 100 Unit/Ml 3ml Vial SUBCUT Not Given ACHS [facility] Protocol Lisinopril 10 mg 06/16/23 09:00 06/16/23 08:43 Lisinopril 10 Mg Tablet PO 10 mg DAILY FLORESITA Administration Lorazepam 0.5 mg 06/15/23 16:02 06/16/23 08:43 Lorazepam 0.5 Mg Tablet PO 0.5 mg Q6H PRN Administration Anxiety Pantoprazole Sodium 40 mg 06/15/23 21:00 06/16/23 08:[address] 40 Mg Tablet PO 40 mg BID FLORESITA Administration Zolpidem Tartrate 10 mg 06/15/23 17:15 06/15/23 21:13 Zolpidem 5 Mg Tablet PO 10 mg BEDTIME PRN Administration Insomnia Objective Labs 06/16/23 06:35 06/16/23 06:35 Labs: Laboratory Results - last 24 hr 06/15/23 06/15/23 06/15/23 10:40 12:54 13:54 WBC 4.5 RBC 4.55 Hgb 14.3 Hct 41.0 MCV 90.0 MCH 31.4 MCHC 34.9 RDW 12.7 Plt Count 257 Neut % (Auto) 59.5 Lymph % (Auto) 22.0 L [place] % (Auto) 18.0 H Eos % (Auto) 0.3 L Baso % (Auto) 0.2 Neut # (Auto) 2700 Lymph # (Auto) 1000 L [place] # (Auto) 800 Eos # (Auto) 0 Baso # (Auto) 0 PT 12.0 INR 1.0 APTT 29 Sodium 114 L* D Potassium 3.4 Chloride 82 L Carbon Dioxide 24 BUN 8 L Creatinine 0.55 L Estimated GFR > 60 BUN/Creatinine Ratio 14.5 Glucose 153 H Calcium 8.7 Magnesium 1.7 Total Bilirubin 1.1 AST 56 ALT 83 H Alkaline Phosphatase 54 Total Creatine Kinase 1040 H Troponin I < 0.012 Total Protein 7.1 Albumin 3.9 Globulin 3.2 Albumin/Globulin Ratio 1.2 Lipase 164 TSH 0.680 Urine Color Yellow Urine Appearance Clear Urine pH 7.0 Ur Specific [place] 1.015 Urine Protein Negative Urine Glucose (UA) Negative Urine Ketones 2+ H Urine Occult Blood 1+ H Urine Nitrate Negative Urine Bilirubin Negative Urine Urobilinogen 0.2 Ur Leukocyte Esterase Negative Urine RBC 1-5/hpf Urine WBC None seen Ur Squamous Epith Cells 0-1 /hpf Urine Bacteria None seen Ur Culture Indicated? Cult not indicated Ur Random Sodium 85 Urine Creatinine 79.2 Nasal Screen MRSA (PCR) Salicylates < 1.0 U Opiates 300ng/mL cut Negative Ur Oxycodone Screen Negative Urine Methadone Screen Negative Acetaminophen < 10 Ur Barbiturates Screen Negative U Tricyclic Antidepress Negative Ur Phencyclidine Scrn Negative Ur Amphetamines Screen Negative U Methamphetamines Scrn Negative Ur MDMA Scrn (Ecstasy) Negative U Benzodiazepines Scrn Positive H Urine Cocaine Screen Negative U Marijuana (THC) Screen Negative SARS-CoV-2 (PCR) Influenza A (RT-PCR) Influenza B (RT-PCR) RSV (PCR) 06/15/23 06/15/23 06/15/23 15:10 15:45 20:35 WBC RBC Hgb Hct MCV MCH MCHC RDW Plt Count Neut % (Auto) Lymph % (Auto) [place] % (Auto) Eos % (Auto) Baso % (Auto) Neut # (Auto) Lymph # (Auto) [place] # (Auto) Eos # (Auto) Baso # (Auto) PT INR APTT Sodium 113 L* 116 L* Potassium 3.5 Chloride 86 L Carbon Dioxide 23 BUN 6 L Creatinine 0.62 L Estimated GFR > 60 BUN/Creatinine Ratio 9.7 Glucose 121 H Calcium 7.8 L Magnesium Total Bilirubin AST ALT Alkaline Phosphatase Total Creatine Kinase Troponin I Total Protein Albumin Globulin Albumin/Globulin Ratio Lipase TSH Urine Color Urine Appearance Urine pH Ur Specific [place] Urine Protein Urine Glucose (UA) Urine Ketones Urine Occult Blood Urine Nitrate Urine Bilirubin Urine Urobilinogen Ur Leukocyte Esterase Urine RBC Urine WBC Ur Squamous Epith Cells Urine Bacteria Ur Culture Indicated? Ur Random Sodium Urine Creatinine Nasal Screen MRSA (PCR) Not detected Salicylates U Opiates 300ng/mL cut Ur Oxycodone Screen Urine Methadone Screen Acetaminophen Ur Barbiturates Screen U Tricyclic Antidepress Ur Phencyclidine Scrn Ur Amphetamines Screen U Methamphetamines Scrn Ur MDMA Scrn (Ecstasy) U Benzodiazepines Scrn Urine Cocaine Screen U Marijuana (THC) Screen SARS-CoV-2 (PCR) Negative Influenza A (RT-PCR) Flu a negative Influenza B (RT-PCR) Flu b negative RSV (PCR) Negative 06/15/23 06/16/23 06/16/23 23:30 02:35 06:35 WBC 4.8 RBC 4.49 L Hgb 14.0 Hct 40.3 L MCV 89.6 MCH 31.2 MCHC 34.8 RDW 13.2 Plt Count 276 Neut % (Auto) 50.6 Lymph % (Auto) 23.3 L [place] % (Auto) 25.4 H Eos % (Auto) 0.4 L Baso % (Auto) 0.3 Neut # (Auto) 2400 Lymph # (Auto) 1100 [place] # (Auto) 1200 H Eos # (Auto) 0 Baso # (Auto) 0 PT INR APTT Sodium 118 L* 116 L* 116 L* Potassium 3.6 Chloride 87 L Carbon Dioxide 24 BUN 6 L Creatinine 0.61 L Estimated GFR > 60 BUN/Creatinine Ratio 9.8 Glucose 110 Calcium 7.8 L Magnesium 2.3 Total Bilirubin AST ALT Alkaline Phosphatase Total Creatine Kinase 876 H Troponin I Total Protein Albumin Globulin Albumin/Globulin Ratio Lipase TSH Urine Color Urine Appearance Urine pH Ur Specific [place] Urine Protein Urine Glucose (UA) Urine Ketones Urine Occult Blood Urine Nitrate Urine Bilirubin Urine Urobilinogen Ur Leukocyte Esterase Urine RBC Urine WBC Ur Squamous Epith Cells Urine Bacteria Ur Culture Indicated? Ur Random Sodium Urine Creatinine Nasal Screen MRSA (PCR) Salicylates U Opiates 300ng/mL cut Ur Oxycodone Screen Urine Methadone Screen Acetaminophen Ur Barbiturates Screen U Tricyclic Antidepress Ur Phencyclidine Scrn Ur Amphetamines Screen U Methamphetamines Scrn Ur MDMA Scrn (Ecstasy) U Benzodiazepines Scrn Urine Cocaine Screen U Marijuana (THC) Screen SARS-CoV-2 (PCR) Influenza A (RT-PCR) Influenza B (RT-PCR) RSV (PCR) Exam Vital Signs (past 8 hours): - 06/16/23 01:00 06/16/23 01:00 06/16/23 01:30 Temperature Pulse Rate 66 66 Respiratory Rate 14 17 Blood Pressure 111/65 Pulse Oximetry 97 96 06/16/23 02:00 06/16/23 02:00 06/16/23 02:30 Temperature Pulse Rate 71 71 Respiratory Rate 15 17 Blood Pressure 108/72 Pulse Oximetry 97 98 06/16/23 03:00 06/16/23 03:00 06/16/23 03:30 Temperature Pulse Rate 68 63 Respiratory Rate 20 17 Blood Pressure 112/71 Pulse Oximetry 96 96 06/16/23 04:00 06/16/23 04:00 06/16/23 04:30 Temperature Pulse Rate 63 61 Respiratory Rate 16 14 Blood Pressure 103/65 Pulse Oximetry 96 96 06/16/23 05:00 06/16/23 05:00 06/16/23 05:30 Temperature 97.6 F Pulse Rate 68 Respiratory Rate 16 Blood Pressure 113/67 Pulse Oximetry 96 06/16/23 05:30 06/16/23 06:00 06/16/23 06:00 Temperature Pulse Rate 73 64 Respiratory Rate 18 12 Blood Pressure 101/61 Pulse Oximetry 96 96 06/16/23 06:30 06/16/23 07:00 06/16/23 07:00 Temperature Pulse Rate 78 71 Respiratory Rate 31 H 19 Blood Pressure 120/74 Pulse Oximetry 97 97 06/16/23 08:43 Temperature Pulse Rate 75 Respiratory Rate Blood Pressure 127/77 Pulse Oximetry Oxygen Delivery Method Room Air Narrative Exam Narrative: awake, alert, well appearing on room air. Quality TeleICU VTE Deep Vein Thrombosis/Pulmonary Embolism Present on Admission: No Stress Ulcer Stress ulcer prophylaxis: yes Assessment & Plan Assessment and plan (1) Influenza A: Status: Acute (2) Hyponatremia: Status: Acute (3) Acute insomnia: Status: Acute (4) Acid reflux: Qualifiers: Esophagitis presence: esophagitis presence not specified Qualified Code(s): K21.9 - Gastro-esophageal reflux disease without esophagitis Status: Acute (5) Viral URI with cough: Status: Acute (6) Elevated CK: Problem details: Uncertain etiology Status: Chronic (7) Anxiety: Problem details: 10 years Status: Chronic (8) BPH w urinary obs/LUTS: Status: Chronic (9) GERD (gastroesophageal reflux disease): Qualifiers: Esophagitis presence: esophagitis presence not specified Qualified Code(s): K21.9 - Gastro-esophageal reflux disease without esophagitis Status: Chronic (10) Essential hypertension: Status: Chronic Assessment & Plan narrative: NEURO: # Anxiety -- Cont ativan as needed -- Agree with holding zoloft as SSRI can cause hyponatremia, /SIADH -- for sleep would continue ambien, ativan and melatonin. melatonin ordered PRN but was not given last night per RN RESP: -- On room air -- Encourage IS [facility]: -- continue home lisinopril for HTN : # Hyponatremia - appears euvolemic, c/w SIADH. possibly from SSRI vs. infection with Flu A. -- Agree with BMP every 4 hours -- Goal Na 120 by 2 pm -- D5w started yesterday for rapid rise, however Na 116 today, if not improved on next draw would restart hypertonic Na at 20 cc /hr -- Monitor UOP closely -- Please notify MD if UOP > 200 mL for 2 hours as a stat BMP will need to sent along with holding hypertonic saline to avoid overcorrection -- Replace K ENDO: -- Goal BS < 180 -- Per chart review, CK seems chronicially elevated,- unclear cause- and has been worked up in past with muscle biopsy, reportedly negative. PPX: lovenox PPI- home medication for symptomatic GERD- given increase in Sx, should follow up with OP GI for EGD D/w bedside RN and Dr. Barbosa. Time Spent With Patient Time with patient: 30 to 49 minutes with 50% spent counseling/coordinating care
[2023-06-16 09:20] LABS: Chloride, Urine 80 mmol/L (Not Estab.)
[2023-06-16] MEDS: TIMOLOL 0.5% OPHTH 1 DROPS EYE-BOTH (09:40)
[2023-06-16] MEDS: POTASSIUM CHLORIDE 20 MEQ/15 ML UDC PO (10:20)
[2023-06-16] MEDS: ACETAMINOPHEN 325 MG TABLET 650 MG PO (10:51)
[2023-06-16 10:53] LABS: Sodium 117 mmol/L (137-145)
--- NOTE | 2023-06-16 11:04 | PC.NURSE ---
Addendum entered by Emy Gray R.N. 06/16/23 18:55: Relayed critical Na of 119 to providers. Tele ICU doctor ordered D5W and another sodium lab draw at 2200. Pt resting comfortably with family member. RN updated pt and family member. RN frequently assessed pt for signs and symptoms of hyponatremia throughout the day. VSS. Addendum entered by Emy Gray R.N. 06/16/23 15:46: Spoke with teleICU provider and relayed critical sodium of 116. Provider acknowledged. Addendum entered by Emy Gray R.N. 06/16/23 14:51: Called the intercept teleICU phone number to report critical sodium lab level to provider. Phone went to voicemail, RN requested callback. Addendum entered by Emy Gray R.N. 06/16/23 13:34: During am med pass, pt stated that he takes Flomax at night. Called pharmacy and requested to update order. RN had previously scanned but did not administer medication - unable to undo in SEP. Original Note: Spoke with provider regarding pt's sodium level of 117. Provider said to recheck sodium at 1400 and to have patient eat and drink a normal amount and not drink excessive water.
[2023-06-16 14:08] LABS: Osmolality Urine 452 mOsmol/kg (.)
[2023-06-16 14:08] LABS: Osmolality, Serum 238 mOsmol/kg (280-301)
[2023-06-16 14:40] LABS: Sodium 116 mmol/L (137-145)
[2023-06-16] MEDS: SODIUM CHLORIDE 1,000 MG TABLET 1000 MG PO ×2 (15:51→17:24)
--- NOTE | 2023-06-16 16:28 | CM.DPNOTE ---
DCP note UNIT CONTROLLER reviewed EMR. Per ED SW DC assessment, likely home to [facility], no needs. Per provider, likely here a few days due to slow changing sodium. UNIT CONTROLLER unable to meet with today due to triaging needs. Plan: likely home with family to [facility] when stable. CM team will follow as needed. ARNULFO Fleming
--- NOTE | 2023-06-16 16:51 | DIET.CONS ---
Dietary Consultation Note Admission Date: 06/15/2023 15:54 Assessment: 62 M admitted with hyponatremia. RD screen indicated risk for malnutrition based on wt loss of 2.6% in one week. Recent influenza and anxiety impacted pt's appetite per report. States over the last week he has consumed about 50-75% of usual PO to sustain UBW. Wt hx indicates -1.712kg over one week. States he has had JOSE F and difficulty sleeping. Also reports increased anxiety, which made eating difficult. NFPE: mild depressed temporal region, no other visible evidence of muscle/fat losses. Has used protein shakes in the past, but states he is trying to force himself to eat whole foods currently. PO since admission x 75-100%. Ht: 167.64 cm Wt: 62.5 kg BMI: 22.2 Last BM: 06/16/23 (06/16/23 14:35) MNA: 6 Richard Score: 20 Diet: 06/15/23 Dinner General (Regular) Diet Diet Modifications: Food Texture: Level 7 - Regular Liquid Consistency: Level 0 - Thin 06/16/23 Dinner Fluid Restriction Diet Diet Modifications: Total fluid amount: 1,000 Amount allotted to patient trays: 200 Free water included in total: Yes Fluid in addition to trays: 2795-4589 amount: 800 [id number] amount: 200 Food Texture: Level 7 - Regular Liquid Consistency: Level 0 - Thin Nutrition Percent Meal Consumed 100 06/16/23 14:27 Percent Meal Consumed 100% 06/16/23 09:44 Percent Meal Consumed 75% 06/15/23 18:47 Labs: RBC 4.49 X10^6/uL (4.5-5.9) L 06/16/23 06:35 Hgb 14.0 g/dL (13.5-17.5) 06/16/23 06:35 Hct 40.3 % (41-53) L 06/16/23 06:35 Creatinine 0.61 mg/dL (0.66-1.25) L 06/16/23 06:35 Nutrition Diagnosis: Acute moderate protein calorie malnutrition r/t influenza and anxiety impacting appetite aeb pt report of 50-75% EER for 7 days and >2% weight loss over one week. -The patient is at much higher risk for medical and surgical complications because of his malnutrition.? This increases the difficulty and complexity of medical and surgical interventions and increases the chances of poor outcomes such as morbidity and mortality. Interventions: Discussed importance of protein intake. Reviewed strategies to increase kcal intake during illness. Offered daily ONS, but pt would like to proceed with whole foods at this time. EER: 9768-0551 kcal (27-28kcal/kg per BMI) 70-80g PRO (1.1-1.3g/kg per moderate PCM) Monitoring/Evaluations: RD f/u 5-7 days Electronically Signed by: Traci Clarke 06/16/23 16:51 Clinical Dietitian [address] [address]
--- NOTE | 2023-06-16 17:05 | PM.PN.1 ---
Subjective Subjective Interval history: Patient still having lots of anxiety, did not sleep well last night despite ambien 10mg. Sodium improved to 118 with 3% saline, but then decreased to 116 after D5W to prevent overcorrection. Per teleICU will fluid restrict and start salt tabs to have patient autocorrect. Exam Vital Signs (past 8 hours): - 06/15/23 10:04 06/15/23 10:38 06/15/23 12:20 Temperature 97.9 F Pulse Rate 84 84 77 Respiratory Rate 14 12 Blood Pressure 192/112 H 192/112 H 166/92 H Pulse Oximetry 99 98 Oxygen Delivery Method Room Air Room Air 06/15/23 13:45 06/15/23 14:23 06/15/23 14:30 Temperature Pulse Rate 75 74 73 Respiratory Rate 14 15 14 Blood Pressure 140/82 Pulse Oximetry 98 96 96 Oxygen Delivery Method Room Air 06/15/23 14:30 06/15/23 15:00 06/15/23 15:00 Temperature Pulse Rate 75 Respiratory Rate 16 Blood Pressure 119/73 135/82 Pulse Oximetry 94 Oxygen Delivery Method Oxygen Delivery Method Room Air Narrative Exam Narrative: GEN: no acute distress, anxious HEENT: moist mucous membranes, PERRL NECK: trachea midline, no JVD CV: regular rate and rhythm, no murmurs PULM: clear bilaterally ABD: soft, nontender, nondistended, no organomegaly EXT: warm and well perfused with no edema NEURO: awake, alert, oriented, no focal deficits Objective Labs 06/16/23 06:35 06/16/23 14:10 Labs: Laboratory Results - last 24 hr 06/15/23 06/15/23 06/15/23 10:40 15:17 15:45 WBC RBC Hgb Hct MCV MCH MCHC RDW Plt Count Neut % (Auto) Lymph % (Auto) [place] % (Auto) Eos % (Auto) Baso % (Auto) Neut # (Auto) Lymph # (Auto) [place] # (Auto) Eos # (Auto) Baso # (Auto) Sodium Potassium Chloride Carbon Dioxide BUN Creatinine Estimated GFR BUN/Creatinine Ratio Glucose Serum Osmolality 238 L Calcium Magnesium Total Creatine Kinase Urine Osmolality 452 Urine Chloride 80 Nasal Screen MRSA (PCR) Not detected SARS-CoV-2 (PCR) Negative Influenza A (RT-PCR) Flu a negative Influenza B (RT-PCR) Flu b negative RSV (PCR) Negative 06/15/23 06/15/23 06/16/23 20:35 23:30 02:35 WBC RBC Hgb Hct MCV MCH MCHC RDW Plt Count Neut % (Auto) Lymph % (Auto) [place] % (Auto) Eos % (Auto) Baso % (Auto) Neut # (Auto) Lymph # (Auto) [place] # (Auto) Eos # (Auto) Baso # (Auto) Sodium 116 L* 118 L* 116 L* Potassium 3.5 Chloride 86 L Carbon Dioxide 23 BUN 6 L Creatinine 0.62 L Estimated GFR > 60 BUN/Creatinine Ratio 9.7 Glucose 121 H Serum Osmolality Calcium 7.8 L Magnesium Total Creatine Kinase Urine Osmolality Urine Chloride Nasal Screen MRSA (PCR) SARS-CoV-2 (PCR) Influenza A (RT-PCR) Influenza B (RT-PCR) RSV (PCR) 06/16/23 06/16/23 06/16/23 06:35 11:25 14:10 WBC 4.8 RBC 4.49 L Hgb 14.0 Hct 40.3 L MCV 89.6 MCH 31.2 MCHC 34.8 RDW 13.2 Plt Count 276 Neut % (Auto) 50.6 Lymph % (Auto) 23.3 L [place] % (Auto) 25.4 H Eos % (Auto) 0.4 L Baso % (Auto) 0.3 Neut # (Auto) 2400 Lymph # (Auto) 1100 [place] # (Auto) 1200 H Eos # (Auto) 0 Baso # (Auto) 0 Sodium 116 L* 117 L* 116 L* Potassium 3.6 Chloride 87 L Carbon Dioxide 24 BUN 6 L Creatinine 0.61 L Estimated GFR > 60 BUN/Creatinine Ratio 9.8 Glucose 110 Serum Osmolality Calcium 7.8 L Magnesium 2.3 Total Creatine Kinase 876 H Urine Osmolality Urine Chloride Nasal Screen MRSA (PCR) SARS-CoV-2 (PCR) Influenza A (RT-PCR) Influenza B (RT-PCR) RSV (PCR) PFSH Medical History Hematuria Allergies Cataracts, bilateral (~2004) Elevated CK Erectile dysfunction BPH w urinary obs/LUTS Anxiety Depression Glaucoma (~2004) Hypogonadism male Essential hypertension (~2009) Kidney cyst, acquired Blurred vision Dry skin Constipation GERD (gastroesophageal reflux disease) Surgical History S/P cataract extraction History of esophagogastroduodenoscopy (EGD) History of colonoscopy Family History Mother Diabetes mellitus Hyperlipidemia Hypertension Father Hypertension Hyperlipidemia Heart disease Social History household members: spouse Smoking Status: Former smoker Assessment & Plan Assessment & Plan narrative: # severe acute hyponatremia -Na 127 on 06/13, now 114 two days later -dropped further to 113 -started 3% saline 20cc/hr for 100mL -q4h BMP -urine sodium normal suggesting SIADH -initially increased to 118 then given D5W to not overcorrect, dropped to 116 -now on fluid restriction 1L/day plus salt tabs -goal sodium 06/17 is 122 # rhabdomyalosis -CK 1040, unclear cause. Patient notes history of high CK and despite muscle biopsies so cause was found. -no sign of kidney impairment -monitor Cr and daily CK's -down to 800's # anxiety and insomnia -ativan po 0.5mg q6h PRN -ambien 10mg ineffective per patient -start trazodone 50mg nightly # GERD -PPI and GI cocktail PRN # BPH -continue flomax # HTN -continue lisinopril # HLD -continue statin and zetia # DM2 -hold metformin -SSI -A1c 5.7% # Acute moderate protein calorie malnutrition r/t influenza and anxiety impacting appetite aeb pt report of 50-75% EER for 7 days and >2% weight loss over one week. -the patient is at much higher risk for medical and surgical complications because of his malnutrition. This increases the difficulty and complexity of medical and surgical interventions and increases the chances of poor outcomes such as morbidity and mortality. Code status is full code. DVT prophylaxis with Lovenox. Proxy is Mendy. I have reviewed home meds and used all available resources to reconcile the home meds. Dispo: 2-3 days to correct sodium. Quality VTE Deep Vein Thrombosis/Pulmonary Embolism Present on Admission: No
[2023-06-16] MEDS: CALCIUM CARBONATE 500 MG TAB 1000 MG PO (17:24)
[2023-06-16 18:38] LABS: Sodium 119 mmol/L (137-145)
[2023-06-16] MEDS: DEXTROSE 5% WATER 1,000 ML 50 ML IV (19:17)
--- NOTE | 2023-06-16 20:29 | P.ICUMDRN_ITS ---
- Date Patient Seen: 06/16/23 :: This patient was seen via real time interactive two-way audiovisual telecommunic ation. Note: Na up to 119. Cont salt tablet and fluid restriction. Added D5W 50 cc/hr given high UOP. D/w bedside RN.
[2023-06-16] MEDS: TAMSULOSIN 0.4 MG CAPSULE PO (21:38)
[2023-06-16] MEDS: TRAZODONE 50 MG TABLET PO (21:38)
[2023-06-16] MEDS: LATANOPROST 0.005% OPHTH 2.5 ML 1 DROPS EYE-BOTH (21:38)
[2023-06-16] MEDS: ATORVASTATIN 20 MG TABLET PO (21:38)
[2023-06-16 22:48] LABS: Sodium 120 mmol/L (137-145)
[2023-06-17] VITALS (32 sets, daily range): BP systolic 97–116; BP diastolic 58–76; PULSE 66–85; RESP 14–19; TEMP 36.4–37.3; O2SAT 95–100
[2023-06-17] MEDS: ACETAMINOPHEN 325 MG TABLET 650 MG PO ×2 (00:52→22:17)
[2023-06-17 02:26] LABS: Sodium 120 mmol/L (137-145)
[2023-06-17 06:07] LABS: Add Manual Diff / Slide Review NO; Basophils Absolute Auto 0 /uL (0-100); Basophils Percent Auto 0.4 % (0-2); Eosinophils Absolute Auto 0 /uL (0-450); Eosinophils Percent Auto 0.6 % (2-4); Hematocrit 40.7 % (41-53); Hemoglobin 14.2 g/dL (13.5-17.5); Lymphocytes Absolute Auto 1500 /uL (1100-4500); Lymphocytes Percent Auto 29.3 % (25-40); Mean Corpuscular HGB Conc 34.9 % (30-36); Mean Corpuscular Hemoglobin 31.6 PG (26-34); Mean Corpuscular Volume 90.6 fL (80-100); Monocytes Absolute Auto 1200 /uL (0-900); Monocytes Percent Auto 24.4 % (3-14); Neutrophils Absolute Auto 2300 /uL (1500-7000); Neutrophils Percent Auto 45.3 % (50-75); Platelet Count 293 X10^3/uL (150-400); Red Blood Cell Count 4.49 X10^6/uL (4.5-5.9); Red Cell Distribution Width 13.3 % (11.6-14.8); White Blood Cell Count 5.1 X10^3/uL (4.5-11.0)
[2023-06-17 06:16] LABS: BUN Creatinine Ratio 13.6 (6-22); Blood Urea Nitrogen 9 mg/dL (9-20); Calcium 8.6 mg/dL (8.4-10.2); Carbon Dioxide 25 mmol/L (22-32); Chloride 92 mmol/L (98-107); Creatine Kinase 753 U/L (55-170); Estimated Glomerular Filt Rate > 60 mL/min (>60); Glucose 116 mg/dL (80-110); HEMOLYSIS 17 (0-50); Magnesium 2.2 mg/dL (1.6-2.3); Sodium 121 mmol/L (137-145)
--- NOTE | 2023-06-17 06:34 | PC.NURSE ---
pt slept better this shift; he was given tylenol per request for back ache; his sodium is slowly rising and this morning is 121; pt remains on a p.o fluid restriction, of which he is aware and compliant
[2023-06-17] MEDS: ENOXAPARIN 40 MG/0.4 ML SYRINGE SUBCUT (08:50)
[2023-06-17] MEDS: SODIUM CHLORIDE 1,000 MG TABLET 1000 MG PO ×2 (08:51→12:11)
[2023-06-17] MEDS: EZETIMIBE 10 MG TABLET PO (08:51)
[2023-06-17] MEDS: lisinopriL 10 MG TABLET PO (08:51)
[2023-06-17] MEDS: FINASTERIDE 5 MG TABLET PO (08:51)
[2023-06-17] MEDS: PANTOPRAZOLE DR 40 MG TABLET PO ×2 (08:51→20:45)
[2023-06-17] MEDS: TIMOLOL 0.5% OPHTH 1 DROPS EYE-BOTH (08:53)
[2023-06-17 09:05] LABS: BUN Creatinine Ratio 12.5 (6-22); Blood Urea Nitrogen 8 mg/dL (9-20); Calcium 8.5 mg/dL (8.4-10.2); Carbon Dioxide 24 mmol/L (22-32); Chloride 93 mmol/L (98-107); Estimated Glomerular Filt Rate > 60 mL/min (>60); Glucose 109 mg/dL (80-110); HEMOLYSIS 20 (0-50); Sodium 122 mmol/L (137-145)
--- NOTE | 2023-06-17 09:38 | P.TELICUPN_ITS ---
Subjective Subjective IF CAMERA ACTIVATED, patient seen via real-time interactive audiovisual communication: Camera activated Consent obtained for tele-game technician care: Yes Patient Location: ICU Provider location (State): Other participants/roles: RN Interval history: Pt sodium 122 this morning, stopped D5W this am , now only on salt tab Assessment : Sever hyponatremia Recommendation: Stopped D5W, continue salt tab, Q8H sodium checks, goal 130 by tomorrow morning, if goal of 125 not achieved by 5 pm today may double the salt tab dose, close watch UOP and sodium if increased more than goal pls notify MD. Current Medications Current Medications Medications: Home Medications latanoprost 0.005 % eye drops 1 drop EYE-BOTH DAILY 01/24/20 [History Confirmed 06/15/23] lisinopril 10 mg tablet 10 mg PO DAILY 05/04/20 [History Confirmed 06/15/23] ezetimibe 10 mg tablet 10 mg PO DAILY 06/08/23 [History Confirmed 06/15/23] metformin 500 mg tablet,extended release 24 hr 500 mg PO BID 06/08/23 [History Confirmed 06/15/23] rosuvastatin 10 mg tablet 10 mg PO ONCE PM 06/08/23 [History Confirmed 06/15/23] tamsulosin 0.4 mg capsule 0.4 mg PO DAILY 06/08/23 [History Confirmed 06/15/23] finasteride 5 mg tablet 5 mg PO DAILY 06/15/23 [History Confirmed 06/15/23] lorazepam 0.5 mg tablet 0.25 mg PO BEDTIME PRN sleep 06/15/23 [History Confirmed 06/15/23] omeprazole 40 mg capsule,delayed release 40 mg PO BID 06/15/23 [History Confirmed 06/15/23] sertraline 25 mg tablet 25 mg PO DAILY 06/15/23 [History Confirmed 06/15/23] timolol 0.5 % eye drops (Betimol) 1 drp ophthalmic (eye) DAILY 06/15/23 [History Confirmed 06/15/23] zolpidem 10 mg tablet (Ambien) 10 mg PO BEDTIME PRN Insomnia 06/15/23 [History Confirmed 06/15/23] Visit Medications (administered) Generic Name Dose Route Start Last Admin Trade Name Freq PRN Reason Stop Dose Admin Acetaminophen 650 mg 06/15/23 16:07 06/17/23 00:52 Acetaminophen 325 Mg Tablet PO 650 mg Q6H PRN Administration Fever/Mild Pain (1-3) Atorvastatin Calcium 20 mg 06/15/23 21:00 06/16/23 21:38 Atorvastatin 20 Mg Tablet PO 20 mg BEDTIME FLORESITA Administration Calcium Carbonate 1,000 mg 06/16/23 16:49 06/16/23 17:24 Calcium Carbonate 500 Mg Tab PO 1,000 mg Q6H PRN Administration Dyspepsia Al Hydrox/Mg Hydrox/ 0 ml 06/15/23 17:53 06/16/23 14:07 Simethicone 20 ml/ Lidocaine PO 30 ml HCl 15 ml Q8H PRN Administration GI upset Ezetimibe 10 mg 06/16/23 09:00 06/17/23 08:51 Ezetimibe 10 Mg Tablet PO 10 mg DAILY FLORESITA Administration Enoxaparin Sodium 40 mg 06/15/23 16:10 06/17/23 08:50 Enoxaparin 40 Mg/0.4 Ml Syringe SUBCUT 40 mg DAILY FLORESITA Administration Finasteride 5 mg 06/16/23 09:00 06/17/23 08:51 Finasteride 5 Mg Tablet PO 5 mg DAILY FLORESITA Administration Dextrose 1,000 mls @ 100 mls/hr 06/15/23 21:45 06/16/23 03:09 Dextrose 5% Water IV 100 mls/hr CONT FLORESITA Infusion Insulin Human Lispro 0 unit 06/15/23 21:00 06/17/23 08:40 Insulin Lispro 100 Unit/Ml 3ml Vial SUBCUT Not Given ACHS [facility] Protocol Latanoprost 1 drops 06/16/23 21:00 06/16/23 21:38 Latanoprost 0.005% Ophth 2.5 Ml EYE-BOTH 1 drops BEDTIME FLORESITA Administration Lisinopril 10 mg 06/16/23 09:00 06/17/23 08:51 Lisinopril 10 Mg Tablet PO 10 mg DAILY FLORESITA Administration Lorazepam 0.5 mg 06/15/23 16:02 06/16/23 08:43 Lorazepam 0.5 Mg Tablet PO 0.5 mg Q6H PRN Administration Anxiety Pantoprazole Sodium 40 mg 06/15/23 21:00 06/17/23 08:[address] 40 Mg Tablet PO 40 mg BID FLORESITA Administration Sodium Chloride 1,000 mg 06/16/23 17:00 06/17/23 08:51 Sodium Chloride 1,000 Mg Tablet PO 1,000 mg TIDWM FLORESITA Administration Tamsulosin HCl 0.4 mg 06/16/23 21:00 06/16/23 21:38 Tamsulosin 0.4 Mg Capsule PO 0.4 mg BEDTIME FLORESITA Administration Timolol Maleate 1 drops 06/16/23 09:00 06/17/23 08:53 Timolol 0.5% Ophth EYE-BOTH 1 drop DAILY FLORESITA Administration Trazodone HCl 50 mg 06/16/23 21:00 06/16/23 21:38 Trazodone 50 Mg Tablet PO 50 mg BEDTIME FLORESITA Administration Objective Labs 06/17/23 05:50 06/17/23 08:35 Labs: Laboratory Results - last 24 hr 06/15/23 06/15/23 06/16/23 10:40 15:17 11:25 WBC RBC Hgb Hct MCV MCH MCHC RDW Plt Count Neut % (Auto) Lymph % (Auto) [place] % (Auto) Eos % (Auto) Baso % (Auto) Neut # (Auto) Lymph # (Auto) [place] # (Auto) Eos # (Auto) Baso # (Auto) Sodium 117 L* Potassium Chloride Carbon Dioxide BUN Creatinine Estimated GFR BUN/Creatinine Ratio Glucose Serum Osmolality 238 L Calcium Magnesium Total Creatine Kinase Urine Osmolality 452 06/16/23 06/16/23 06/16/23 14:10 16:00 18:15 WBC RBC Hgb Hct MCV MCH MCHC RDW Plt Count Neut % (Auto) Lymph % (Auto) [place] % (Auto) Eos % (Auto) Baso % (Auto) Neut # (Auto) Lymph # (Auto) [place] # (Auto) Eos # (Auto) Baso # (Auto) Sodium 116 L* Cancelled 119 L* Potassium Chloride Carbon Dioxide BUN Creatinine Estimated GFR BUN/Creatinine Ratio Glucose Serum Osmolality Calcium Magnesium Total Creatine Kinase Urine Osmolality 06/16/23 06/17/23 06/17/23 22:15 02:10 05:50 WBC 5.1 RBC 4.49 L Hgb 14.2 Hct 40.7 L MCV 90.6 MCH 31.6 MCHC 34.9 RDW 13.3 Plt Count 293 Neut % (Auto) 45.3 L Lymph % (Auto) 29.3 [place] % (Auto) 24.4 H Eos % (Auto) 0.6 L Baso % (Auto) 0.4 Neut # (Auto) 2300 Lymph # (Auto) 1500 [place] # (Auto) 1200 H Eos # (Auto) 0 Baso # (Auto) 0 Sodium 120 L 120 L 121 L Potassium 4.0 Chloride 92 L Carbon Dioxide 25 BUN 9 Creatinine 0.66 Estimated GFR > 60 BUN/Creatinine Ratio 13.6 Glucose 116 H Serum Osmolality Calcium 8.6 Magnesium 2.2 Total Creatine Kinase 753 H Urine Osmolality 06/17/23 08:35 WBC RBC Hgb Hct MCV MCH MCHC RDW Plt Count Neut % (Auto) Lymph % (Auto) [place] % (Auto) Eos % (Auto) Baso % (Auto) Neut # (Auto) Lymph # (Auto) [place] # (Auto) Eos # (Auto) Baso # (Auto) Sodium 122 L Potassium 4.0 Chloride 93 L Carbon Dioxide 24 BUN 8 L Creatinine 0.64 L Estimated GFR > 60 BUN/Creatinine Ratio 12.5 Glucose 109 Serum Osmolality Calcium 8.5 Magnesium Total Creatine Kinase Urine Osmolality Exam Vital Signs (past 8 hours): - 06/17/23 02:00 06/17/23 03:00 06/17/23 04:00 Temperature Pulse Rate 66 71 Respiratory Rate 14 14 Blood Pressure 106/62 102/65 Pulse Oximetry 97 96 Oxygen Delivery Method Room Air 06/17/23 04:00 06/17/23 05:00 06/17/23 06:00 Temperature 99.1 F Pulse Rate 71 69 75 Respiratory Rate 16 16 18 Blood Pressure 104/61 104/66 108/66 Pulse Oximetry 96 95 95 Oxygen Delivery Method 06/17/23 07:00 06/17/23 07:00 06/17/23 07:30 Temperature Pulse Rate 73 72 Respiratory Rate Blood Pressure 105/64 Pulse Oximetry 95 96 Oxygen Delivery Method 06/17/23 08:00 06/17/23 08:00 06/17/23 08:00 Temperature Pulse Rate 71 Respiratory Rate 14 Blood Pressure 106/60 Pulse Oximetry 96 Oxygen Delivery Method Room Air 06/17/23 08:00 06/17/23 08:30 06/17/23 08:49 Temperature 97.5 F L Pulse Rate 83 83 Respiratory Rate 14 Blood Pressure 106/60 Pulse Oximetry 96 96 95 Oxygen Delivery Method 06/17/23 08:49 06/17/23 08:51 06/17/23 09:02 Temperature Pulse Rate 85 85 Respiratory Rate Blood Pressure 112/76 112/76 Pulse Oximetry 100 Oxygen Delivery Method Oxygen Delivery Method Room Air Quality TeleICU VTE Deep Vein Thrombosis/Pulmonary Embolism Present on Admission: No
[2023-06-17] MEDS: MAG HYDROX/ALUMINUM/SIMETH SUS 20 ML, LIDOCAINE VISCOUS 2% 15 ML PO (12:11)
[2023-06-17 13:43] LABS: Sodium 123 mmol/L (137-145)
--- NOTE | 2023-06-17 14:49 | PC.NURSE ---
RN communicated sodium lab levels to tele-health ICU provider in am and afternoon. Pt ambulatory, VSS, RN monitoring Is and Os and neuro function. Pt occaisionally complains of acid reflux - PRN meds given and help with acid reflux.
[2023-06-17] MEDS: CALCIUM CARBONATE 500 MG TAB 1000 MG PO (15:08)
[2023-06-17] MEDS: SODIUM CHLORIDE 1,000 MG TABLET 2000 MG PO (16:32)
--- NOTE | 2023-06-17 18:23 | P.PN_ITS ---
Subjective Subjective Interval history: Patient doing better today. Sodium improved to 123 with fluid restriction and salt tabs. He slept better overnight with trazodone. Exam Vital Signs (past 8 hours): - 06/17/23 10:30 06/17/23 11:00 06/17/23 11:30 Temperature Pulse Rate 73 73 69 Respiratory Rate Blood Pressure Pulse Oximetry 96 96 96 Oxygen Delivery Method 06/17/23 12:00 06/17/23 12:00 06/17/23 12:22 Temperature 98.3 F Pulse Rate 70 Respiratory Rate 18 Blood Pressure Pulse Oximetry 96 Oxygen Delivery Method Room Air 06/17/23 12:24 06/17/23 13:15 06/17/23 13:16 Temperature Pulse Rate 69 83 75 Respiratory Rate 19 Blood Pressure 97/58 L Pulse Oximetry 96 98 98 Oxygen Delivery Method 06/17/23 15:04 06/17/23 15:04 06/17/23 16:00 Temperature 97.5 F L Pulse Rate 75 74 Respiratory Rate Blood Pressure 101/65 Pulse Oximetry 98 Oxygen Delivery Method Room Air 06/17/23 16:28 06/17/23 16:30 06/17/23 16:30 Temperature 97.9 F Pulse Rate 74 71 Respiratory Rate Blood Pressure 107/63 Pulse Oximetry 99 98 Oxygen Delivery Method Oxygen Delivery Method Room Air Narrative Exam Narrative: GEN: no acute distress, anxious HEENT: moist mucous membranes, PERRL NECK: trachea midline, no JVD CV: regular rate and rhythm, no murmurs PULM: clear bilaterally ABD: soft, nontender, nondistended, no organomegaly EXT: warm and well perfused with no edema NEURO: awake, alert, oriented, no focal deficits Objective Labs 06/17/23 05:50 06/17/23 13:10 Labs: Laboratory Results - last 24 hr 06/16/23 06/16/23 06/17/23 18:15 22:15 02:10 WBC RBC Hgb Hct MCV MCH MCHC RDW Plt Count Neut % (Auto) Lymph % (Auto) [place] % (Auto) Eos % (Auto) Baso % (Auto) Neut # (Auto) Lymph # (Auto) [place] # (Auto) Eos # (Auto) Baso # (Auto) Sodium 119 L* 120 L 120 L Potassium Chloride Carbon Dioxide BUN Creatinine Estimated GFR BUN/Creatinine Ratio Glucose Calcium Magnesium Total Creatine Kinase 06/17/23 06/17/23 06/17/23 05:50 08:35 13:10 WBC 5.1 RBC 4.49 L Hgb 14.2 Hct 40.7 L MCV 90.6 MCH 31.6 MCHC 34.9 RDW 13.3 Plt Count 293 Neut % (Auto) 45.3 L Lymph % (Auto) 29.3 [place] % (Auto) 24.4 H Eos % (Auto) 0.6 L Baso % (Auto) 0.4 Neut # (Auto) 2300 Lymph # (Auto) 1500 [place] # (Auto) 1200 H Eos # (Auto) 0 Baso # (Auto) 0 Sodium 121 L 122 L 123 L Potassium 4.0 4.0 Chloride 92 L 93 L Carbon Dioxide 25 24 BUN 9 8 L Creatinine 0.66 0.64 L Estimated GFR > 60 > 60 BUN/Creatinine Ratio 13.6 12.5 Glucose 116 H 109 Calcium 8.6 8.5 Magnesium 2.2 Total Creatine Kinase 753 H PFSH Medical History Hematuria Allergies Cataracts, bilateral (~2004) Elevated CK Erectile dysfunction BPH w urinary obs/LUTS Anxiety Depression Glaucoma (~2004) Hypogonadism male Essential hypertension (~2009) Kidney cyst, acquired Blurred vision Dry skin Constipation GERD (gastroesophageal reflux disease) Surgical History S/P cataract extraction History of esophagogastroduodenoscopy (EGD) History of colonoscopy Family History Mother Diabetes mellitus Hyperlipidemia Hypertension Father Hypertension Hyperlipidemia Heart disease Social History household members: spouse Smoking Status: Former smoker Assessment & Plan Assessment & Plan narrative: # severe acute hyponatremia, improving -Na 127 on 06/13, now 114 two days later. Possibly due to zoloft as he started it 1 week ago. -dropped further to 113 -started 3% saline 20cc/hr for 100mL -q4h BMP -urine sodium normal suggesting SIADH -initially increased to 118 then given D5W to not overcorrect, dropped to 116 -now on fluid restriction 1L/day plus salt tabs -sodium now 123, patient feeling better # rhabdomyalosis -CK 1040, unclear cause. Patient notes history of high CK and despite muscle biopsies so cause was found. -no sign of kidney impairment -monitor Cr and daily CK's -down to 800's # anxiety and insomnia -ativan po 0.5mg q6h PRN -ambien 10mg ineffective per patient -trazodone 50mg nightly helped, prescribe for him on discharge -stopped geeta sauceda on discharge # GERD -PPI and GI cocktail PRN # BPH -continue flomax # HTN -continue lisinopril # HLD -continue statin and zetia # DM2 -hold metformin -SSI -A1c 5.7% # Acute moderate protein calorie malnutrition r/t influenza and anxiety impacting appetite aeb pt report of 50-75% EER for 7 days and >2% weight loss over one week. -the patient is at much higher risk for medical and surgical complications because of his malnutrition. This increases the difficulty and complexity of medical and surgical interventions and increases the chances of poor outcomes such as morbidity and mortality. Code status is full code. DVT prophylaxis with Lovenox. Proxy is Mendy. I have reviewed home meds and used all available resources to reconcile the home meds. Dispo: Likely home on 06/18 if sodium continues to improve. Quality VTE Deep Vein Thrombosis/Pulmonary Embolism Present on Admission: No
[2023-06-17] MEDS: ATORVASTATIN 20 MG TABLET PO (20:45)
[2023-06-17] MEDS: LATANOPROST 0.005% OPHTH 2.5 ML 1 DROPS EYE-BOTH (20:45)
[2023-06-17] MEDS: TAMSULOSIN 0.4 MG CAPSULE PO (20:45)
[2023-06-17 21:41] LABS: Sodium 125 mmol/L (137-145)
[2023-06-17] MEDS: TRAZODONE 50 MG TABLET PO (22:16)
[2023-06-17] MEDS: SODIUM CHLORIDE 0.9% FLUSH 10 ML IV (22:16)
[2023-06-17] MEDS: MELATONIN 3 MG TABLET 6 MG PO (22:21)
[2023-06-18 04:55] LABS: Add Manual Diff / Slide Review NO; Basophils Absolute Auto 0 /uL (0-100); Basophils Percent Auto 0.3 % (0-2); Eosinophils Absolute Auto 100 /uL (0-450); Eosinophils Percent Auto 1.1 % (2-4); Hematocrit 39.5 % (41-53); Hemoglobin 13.4 g/dL (13.5-17.5); Lymphocytes Absolute Auto 1800 /uL (1100-4500); Lymphocytes Percent Auto 29.1 % (25-40); Mean Corpuscular HGB Conc 33.8 % (30-36); Mean Corpuscular Hemoglobin 31.1 PG (26-34); Mean Corpuscular Volume 91.8 fL (80-100); Monocytes Absolute Auto 1200 /uL (0-900); Monocytes Percent Auto 18.6 % (3-14); Neutrophils Absolute Auto 3200 /uL (1500-7000); Neutrophils Percent Auto 50.9 % (50-75); Platelet Count 313 X10^3/uL (150-400); Red Cell Distribution Width 13.4 % (11.6-14.8); White Blood Cell Count 6.3 X10^3/uL (4.5-11.0)
[2023-06-18 04:58] LABS: Sodium 128 mmol/L (137-145)
--- NOTE | 2023-06-18 05:47 | PC.NURSE ---
Patient resting in bed most of the shift. Up to bathroom independently. Patient has been A&O, calm and cooperative.
[2023-06-18 08:00] VITALS: BP 118/74; PULSE 79; RESP 16; TEMP 36.6; O2SAT 97
[2023-06-18 08:36] VITALS: BP 118/74; PULSE 78
[2023-06-18] MEDS: SODIUM CHLORIDE 1,000 MG TABLET 2000 MG PO (08:36)
[2023-06-18] MEDS: lisinopriL 10 MG TABLET PO (08:36)
[2023-06-18] MEDS: ENOXAPARIN 40 MG/0.4 ML SYRINGE SUBCUT (08:36)
[2023-06-18] MEDS: PANTOPRAZOLE DR 40 MG TABLET PO (08:37)
[2023-06-18] MEDS: EZETIMIBE 10 MG TABLET PO (08:37)
[2023-06-18] MEDS: FINASTERIDE 5 MG TABLET PO (08:37)
[2023-06-18] MEDS: SODIUM CHLORIDE 0.9% FLUSH 10 ML IV (08:37)
[2023-06-18] MEDS: TIMOLOL 0.5% OPHTH 1 DROPS EYE-BOTH (08:38)
--- NOTE | 2023-06-18 09:14 | PM.DS.1 ---
History of Present Illness History of Present Illness Date Patient Seen: 06/18/23 Time Patient Seen: 09:14 Chief complaint: heartburn not getting better aniexty paranoid Narrative: Per admitting provider, Oliver Teixeira is a 62yo M with PMH of recent Influenza A, BPH, GERD, HTN, HLD, DM2, anxiety and ED who presents with increased anxiety and found to have a sodium of 114. Patient was in our ED 2 days ago for acid reflux and had a sodium of 127. He was discharged home on omeprazole. He notes he has had increasingly worsening anxiety, insomnia, and GERD the past few days. Wasn't drinking excess amounts of water. He takes zoloft for anxiety and depression. He denies CP, SOB, NV, abd pain or diarrhea. 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 Hospital Course: This is a 62 year old male who was admitted with hyponatremia in the setting of severe anxiety and nausea. The etiology of his hyponatremia was likely SIADH from recent SSRI initiation as an outpatient. He was initially on 3% NS with steady improvement in his sodium. He was also noted to have rhabdomyolysis with CK >1000 on admission. The etiology for this was not clear but improved with treatment for his hypotnatremia. He was placed on fluid restriction and salt tablets after completion of 3% saline with continued improvement. Once his sodium was 128 he was discharged home. His SSRI was stopped. Recommend follow up with PCP for continued anxiety and insomnia management with avoidance of SSRI class in the future. He was also noted to have protein calorie nutrition due to his recent illness and anxiety, which increased the difficulty and complexity of medical and surgical interventions and increases the chances of poor outcomes such as morbidity and mortality. Time Spent with Patient Time spent: Greater than 30 minutes Exam Vital Signs (past 8 hours): - 06/18/23 08:00 06/18/23 08:36 Temperature 98 F Pulse Rate 79 78 Respiratory Rate 16 Blood Pressure 118/74 118/74 Pulse Oximetry 97 Oxygen Delivery Method Room Air Oxygen Flow Rate 0 Narrative Exam Narrative: GEN: no acute distress, anxious HEENT: moist mucous membranes, PERRL NECK: trachea midline, no JVD CV: regular rate and rhythm, no murmurs PULM: clear bilaterally ABD: soft, nontender, nondistended, no organomegaly EXT: warm and well perfused with no edema NEURO: awake, alert, oriented, no focal deficits Objective Labs 06/18/23 03:40 06/18/23 03:40 Labs: Laboratory Results - last 24 hr 06/17/23 06/17/23 06/18/23 13:10 21:24 03:40 WBC 6.3 RBC 4.30 L Hgb 13.4 L Hct 39.5 L MCV 91.8 MCH 31.1 MCHC 33.8 RDW 13.4 Plt Count 313 Neut % (Auto) 50.9 Lymph % (Auto) 29.1 [place] % (Auto) 18.6 H Eos % (Auto) 1.1 L Baso % (Auto) 0.3 Neut # (Auto) 3200 Lymph # (Auto) 1800 [place] # (Auto) 1200 H Eos # (Auto) 100 Baso # (Auto) 0 Sodium 123 L 125 L 128 L PFSH Medical History Hematuria Allergies Cataracts, bilateral (~2004) Elevated CK Erectile dysfunction BPH w urinary obs/LUTS Anxiety Depression Glaucoma (~2004) Hypogonadism male Essential hypertension (~2009) Kidney cyst, acquired Blurred vision Dry skin Constipation GERD (gastroesophageal reflux disease) Surgical History S/P cataract extraction History of esophagogastroduodenoscopy (EGD) History of colonoscopy Family History Mother Diabetes mellitus Hyperlipidemia Hypertension Father Hypertension Hyperlipidemia Heart disease Social History household members: spouse Smoking Status: Former smoker Discharge Plan Discharge Plan Patient Disposition: Home Provider Discharge Comment: You were admitted to the hospital with a low sodium level, this was likely due to a new medication started. This medication was stopped. Continue salt tablets for 2 weeks then you can stop. Please follow up with PCP as soon as possible for anxiety management. Discharge orders & Medications Prescriptions: New sodium chloride 1,000 mg Tablet,Soluble 1,000 mg PO BID 14 Days Qty: 28 0RF Continued tamsulosin 0.4 mg capsule 0.4 mg PO DAILY metformin 500 mg tablet extended release 24 hr 500 mg PO BID ezetimibe 10 mg tablet 10 mg PO DAILY rosuvastatin 10 mg tablet 10 mg PO ONCE PM latanoprost 0.005 % drops 1 drop EYE-BOTH DAILY lisinopril 10 mg tablet 10 mg PO DAILY omeprazole 40 mg Capsule,Delayed Release(Dr/Ec) 40 mg PO BID Betimol 0.5 % Drops 1 drp OPHTHALMIC (EYE) DAILY Rx Instructions: both eyes zolpidem [Ambien] 10 mg Tablet 10 mg PO BEDTIME PRN (Reason: Insomnia) finasteride 5 mg Tablet 5 mg PO DAILY lorazepam 0.5 mg tablet 0.25 mg PO BEDTIME PRN (Reason: sleep) Discontinued sertraline 25 mg Tablet 25 mg PO DAILY Follow up/Referrals: Dontae,Doctor, MD [Primary Care Provider] - Diet/Activity/Treatments Diet: Diet as Tolerated and Regular Diet comment: For 1-2 weeks, no more than 1.2 L of fluid per day. Activity: As tolerated Visit Report/Discharge Packet Instructions: Sodium, DI for Hyponatremia, Fluid Restricted Diet, How to Restrict Fluids Stand Alone Forms: Patient Portal/API, Stroke Signs & Symptoms Discharge Data Primary Care Provider: Doctor Dontae Quality VTE Deep Vein Thrombosis/Pulmonary Embolism Present on Admission: No
--- NOTE | 2023-06-18 12:04 | PC.NURSE ---
Discharge: Pt agreeable to plan. IV d/c'd, telemetry removed. Ambulating in room ind. Education provided to pt on new medication, stroke s/s, f/u and finding a primary care provider if an appt can't be made, worsening symptoms. Paperwork signed. Pt wheeled via WC by PCT to private vehicle at approximately 1130.
[2023-06-18 12:11] LABS: Osmolality Urine 237 mOsmol/kg (.)
== END 2023-06-18 11:40 | disposition home or self-care (01) | DRG 644 ==
LOC: ED 11:27 → AC 15:56 → ICU 16:39
PROVIDERS: Anesthesiology Critical Care Medicine; Internal Medicine Critical Care Medicine; Internal Medicine Pulmonary Disease; Admitting Provider Student in an Organized Health Care Education/Training Program; Emergency Provider Emergency Medicine; Referring Provider Emergency Medicine; Visit Provider Student in an Organized Health Care Education/Training Program
DX: E22.2 Syndrome of inappropriate secretion of antidiuretic hormone (principal); E44.0 Moderate protein-calorie malnutrition; M62.82 Rhabdomyolysis; T43.225A Adverse effect of selective serotonin reuptake inhibitors, initial encounter; K21.9 Gastro-esophageal reflux disease without esophagitis; F41.9 Anxiety disorder, unspecified; G47.00 Insomnia, unspecified; F32.A Depression, unspecified; Z68.22 Body mass index [BMI] 22.0-22.9, adult; N40.0 Benign prostatic hyperplasia without lower urinary tract symptoms; I10 Essential (primary) hypertension; E78.5 Hyperlipidemia, unspecified; E11.9 Type 2 diabetes mellitus without complications; H40.9 Unspecified glaucoma; Z83.3 Family history of diabetes mellitus; Z82.49 Family history of ischemic heart disease and other diseases of the circulatory system; Z83.49 Family history of other endocrine, nutritional and metabolic diseases; Z87.891 Personal history of nicotine dependence; Z79.84 Long term (current) use of oral hypoglycemic drugs
CPT/HCPCS: 0241U; 36415; 70450; 71045; 80048; 80053; 80305; 80329; 81001; 81003; 82436; 82550; 82570; 82962; 83690; 83735; 83930; 83935; 84295; 84300; 84443; 84484; 85025; 85610; 85730; 87797; 93005; 93010; 96374; 99231; 99232; 99284; 99285; C9113; G0480; J1650; J3475

== ENCOUNTER → 2023-09-23 09:50 | Outpatient (CLI) | payer BC, SELFPAY ==
[2023-06-15 16:37] VITALS: BMI 22.2
--- NOTE | 2023-09-23 09:51 | DI.CT.S_ITS ---
PROCEDURE: CT ABDOMEN W CON INDICATIONS: Chronic or unspecified gastric ulcer TECHNIQUE: After the administration of intravenous contrast, 5 mm thick sections acquired from the diaphragms to the iliac crests. 5 mm thick coronal and sagittal reformats were acquired. For radiation dose reduction, the following was used: automated exposure control, adjustment of mA and/or kV according to patient size. COMPARISON: None. FINDINGS: Image quality: Diagnostic. Lower Chest: Circumferential thickening of the lower esophagus. ABDOMEN: Liver: Scattered subcentimeter hypoattenuating lesions, too small to characterize by CT but probably small cysts. Gallbladder: No radiopaque gallstones or wall thickening. Biliary ducts: No biliary dilation. Pancreas: No ductal dilation. Spleen: Size is within normal limits. Adrenal Glands: No adrenal nodules. Kidneys and Ureters: No hydronephrosis. No solid mass. No complex renal cystic lesion which requires follow up. Stomach and Bowel: Normal colonic caliber, without significant wall thickening. Peritoneum: No abnormal intraperitoneal fluid. No free air. Ventral Wall: Tiny umbilical hernia containing fat. Abdominal Nodes: No retroperitoneal or mesenteric adenopathy by size criteria. Vessels: Aorta and inferior vena cava are normal in size. Bones: No aggressive osseous abnormality. IMPRESSION: Circumferential thickening of the lower esophagus, favoring esophagitis over malignancy. Consider direct visualization with endoscopy. Dictated by: Angelo James M.D. on 09/23/2023 at 13:56 Approved by: Angelo James M.D. on 09/23/2023 at 13:59
[2023-09-23 10:19] LABS: Estimated Glomerular Filt Rate > 60 mL/min (>60)
== END ==
PROVIDERS: Radiology Diagnostic Radiology; Referring Provider Internal Medicine Gastroenterology; Visit Provider Internal Medicine Gastroenterology
DX: K31.7 Polyp of stomach and duodenum (principal); K25.4 Chronic or unspecified gastric ulcer with hemorrhage
CPT/HCPCS: 36415; 74160; 82565; Q9967